=== PATIENT | female | born 1970 | race Caucasian/White ===

== ENCOUNTER 2025-02-12 10:46 | Outpatient (CLI) | payer OTHER, SELFPAY ==
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
--- OUTSIDE RECORDS SUMMARY | 2025-02-12 10:56 | XMS_ITS | Clinical Summary ---
Author Organization [facility] [facility] Address [address] Attn: Epic Prelude ADT [place] [address] Care Team Providers Care Home Comfort Advisor Name Role Phone Unavailable Primary Care Provider Unavailabl e Allergies No known active allergies Medications ketorolac tromethamine (TORADOL) 10 mg tablet Take 1 tablet (10 mg total) by mouth 4 (four) times daily as needed for Pain. 20 Tablet 12/20/2021 3:38 PM CDT 2 Active divalproex (DEPAKOTE ER) 250 mg Extended Release 24 hour tablet Take 1 tablet (250 mg total) by mouth daily for 5 days. 5 Tablet 2 Active prochlorperazine maleate (COMPAZINE) 5 mg tablet take one tablet by mouth twice daily 10 Tablet 4 12/30/2021 11:46 AM CDT 2 Active divalproex (DEPAKOTE ER) 250 mg Extended Release 24 hour tablet Take 1 tablet (250 mg total) by mouth in the morning and 1 tablet (250 mg total) in the evening. 10 Tablet 2 Active albuterol sulfate 90 mcg/Actuation inhaler Inhale two puffs by mouth every 6 hours as needed for cough or wheezing 8.5 Gram 1 01/20/2022 2:36 PM CDT 2 Active benzonatate (TESSALON) 100 mg capsule Take 1 capsule (100 mg total) by mouth 3 (three) times daily as needed for Cough. 20 Capsule 01/20/2022 2:36 PM CDT 2 Active predniSONE (DELTASONE) 20 mg tablet Take 2 tablets (40 mg total) by mouth daily for 5 days. 10 Tablet 05/11/2022 11:24 AM CDT 2 Active amoxicillin (AMOXIL) 500 mg capsule TAKE 2 CAPSULES BY MOUTH INITIALLY, THEN ONE CAPSULE BY MOUTH EVERY 6 HOURS UNTIL GONE 41 Capsule 07/14/2022 4:17 PM [facility] 2 Active HYDROcodone-aceta minophen (NORCO) 5-325 mg tablet Take 1 tablet by mouth every 6 (six) hours as needed for Pain 20 Tablet 07/15/2022 1:03 PM [facility] 2 Active metroNIDAZOLE (FLAGYL) 500 mg tablet Take 1 Tablet (500 mg) by mouth every 6 hours until gone 28 Tablet 07/16/2022 3:43 PM [facility] 2 Active HYDROcodone-aceta minophen (NORCO) 7.5-325 mg Tablet Take 1 Tablet by mouth every 4 to 6 hours as needed for dental pain. Max Daily Amount: 6 Tablets 20 Tablet 07/22/2022 5:15 PM [facility] 2 Active oxyCODONE-acetami nophen (PERCOCET) 5-325 mg tablet Take 1 to 2 tablets by mouth every 6 (six) hours as needed for Pain. 90 Tablet 09/23/2022 12:07 PM [facility] 3 Active venlafaxine (EFFEXOR XR) 150 mg Extended Release 24 hour capsule Take 1 capsule (150 mg) by mouth daily with food 30 Capsule 2 3 Active vibegron (Gemtesa) 75 mg Tablet Take 1 Tablet by mouth daily. 90 Tablet 1 3 Active venlafaxine (EFFEXOR XR) 150 mg Extended Release 24 hour capsule Take 1 capsule (150 mg) by mouth daily with food 30 Capsule 2 3 Active ubrogepant (Ubrelvy) 100 mg tablet Take 1 tablet (100 mg total) by mouth 2 (two) times daily as needed for Migraine. 16 Tablet 11 12/04/2023 11:58 AM CDT 3 Active cariprazine (Vraylar) 3 mg Capsule capsule Take 1 capsule (3 mg total) by mouth daily. 90 Capsule 1 08/07/2023 11:26 AM [facility] 3 Active traMADoL (ULTRAM) 50 mg tablet Take 1 Tablet (50 mg) by mouth every 6 hours as needed for pain 20 Tablet 06/01/2023 1:06 PM CDT 3 Active venlafaxine (EFFEXOR XR) 150 mg Extended Release 24 hour capsule Take 1 capsule (150 mg) by mouth daily with food 90 Capsule 06/14/2023 12:00 PM [facility] 3 Active oxyCODONE-acetami nophen (PERCOCET) 5-325 mg tablet Take one tablet by mouth every 4 hours as needed for pain 20 Tablet 06/16/2023 4:22 PM [facility] 3 Active cariprazine (Vraylar) 3 mg Capsule capsule Take 1 capsule (3 mg) by mouth daily 90 Capsule 3 Active HYDROcodone-aceta minophen (NORCO) 5-325 mg tablet Take 1 tablet by mouth every 6 (six) hours as needed for Pain. 20 Tablet 06/21/2023 3:33 PM [facility] 3 Active oxyCODONE-acetami nophen (PERCOCET) 5-325 mg tablet Take 1 Tablet by mouth every 4 hours as needed for pain 20 Tablet 06/28/2023 9:37 AM [facility] 3 Active cariprazine (Vraylar) 3 mg Capsule capsule Take 1 capsule (3 mg) by mouth daily 90 Capsule 3 Active venlafaxine (EFFEXOR XR) 150 mg Extended Release 24 hour capsule Take 1 capsule (150 mg) by mouth daily with food 90 Capsule 3 Active HYDROcodone-aceta minophen (NORCO) 5-325 mg tablet Take 1 tablet by mouth every 6 (six) hours as needed for Pain 35 Tablet 09/14/2023 11:30 AM [facility] 4 Active venlafaxine (EFFEXOR XR) 150 mg Extended Release 24 hour capsule Take 1 capsule (150 mg) by mouth daily with food 90 Capsule 4 Active cariprazine (Vraylar) 3 mg Capsule capsule Take 1 capsule (3 mg) by mouth daily 90 Capsule 03/17/2024 12:03 PM CDT 4 Active cariprazine (Vraylar) 3 mg Capsule capsule Take 1 capsule (3 mg) by mouth daily 90 Capsule 11/18/2023 10:56 AM CDT 4 Active clotrimazole-beta methasone (LOTRISONE) 1-0.05 % Cream Apply topically 2 (two) times daily. 45 Gram 1 01/12/2024 12:10 PM CDT 4 Active venlafaxine (EFFEXOR XR) 150 mg Extended Release 24 hour capsule Take 1 capsule (150 mg) by mouth daily with food 90 Capsule 02/04/2024 2:48 PM CDT 4 Active hydrOXYzine HCL (ATARAX) 25 mg tablet Take 1 tablet (25 mg total) by mouth 3 (three) times daily as needed for Itching. 30 Tablet 02/06/2024 5:01 PM CDT 4 Active clonazePAM (KlonoPIN) 0.5 mg Tablet Take 1 Tablet (0.5 mg) by mouth once daily as needed for anxiety 10 Tablet 02/28/2024 12:30 PM CDT 4 Active venlafaxine (EFFEXOR XR) 150 mg Extended Release 24 hour capsule Take 1 capsule (150 mg) by mouth daily with food 90 Capsule 06/05/2024 4:04 PM CDT 4 Active fezolinetant (Veozah) 45 mg tablet Take 1 tablet by mouth daily. 30 Tablet 5 06/24/2024 3:10 PM [facility] 4 Active potassium chloride (KLOR-CON) 10 mEq Extended Release tablet Take 2 tablets (20 mEq total) by mouth daily. 60 Tablet 5 09/22/2024 4:37 PM [facility] 5 Active atogepant (Qulipta) 60 mg Tablet Take 1 tablet (60 mg total) by mouth daily. 30 Tablet 11 5 Active HYDROcodone-aceta minophen (NORCO) 5-325 mg tablet Take 1 tablet by mouth every 8 (eight) hours as needed for Pain. 15 Tablet 10/13/2024 4:49 PM [facility] 5 Active naloxone (NARCAN) 4 mg/spray Tatums, Non-Aerosol 1 spray by Nasal route as needed for Opioid reversal. 1 Each 1 5 Active ubrogepant (Ubrelvy) 100 mg tablet Take 1 tablet (100 mg total) by mouth 2 (two) times daily as needed for Migraine. 16 Tablet 11 12/29/2024 2:59 PM CDT 5 Active Encounters Date Type Department Care Team Description 12/11/2024 External Device Data ST[facility] ABSTRACTION Provider, Abstract from Last 3 Months Social History Tobacco Use Types Packs/Day Years Used Date Smoking Tobacco: Never Assessed Comments Unknown Sex and Gender Information Value Date Recorded Sex Assigned at Not on file Legal Sex Female 3:23 PM CDT Gender Identity Not on file Sexual Orientation Not on file Plan of Treatment Health Maintenance Due Date Last Done Comments DTAP/TDAP/TD VACCINES (1 - Tdap) 12/27/1987 HEPATITIS B VACCINES (1 of 3 - 19+ 3-dose series) 12/07 HPV/Cotest (21-29) 1989 CERVICAL CANCER SCREENING 1998 HPV/Cotest (30-65) 1998 PAP SMEAR 1998 BREAST CANCER SCREENING 2008 COLORECTAL SCREENING 2013 Colorectal Cancer Screening 2013 FIT-DNA Q 3 years 2013 FIT/FOBT Q 1 year 2013 Flex Sig/CT Colonography Q 5 years 2013 ZOSTER VACCINE (1 of 2) 2018 INFLUENZA VACCINE (#1) [address] [place] [id number] [employer] (INTERNAL) [facility] [employer] [facility] [employer] [facility] [employer]
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
--- OUTSIDE RECORDS SUMMARY | 2025-02-12 10:56 | XMS_ITS | Encounter Summary ---
Author Organization [facility] Address [facility] [place] [address] Care Team Providers Care Hospice Clinical Supervisor Name Role Phone Segun Grimaldo MD Unavailable [phone] Bhaskar Kahn MD Primary Care Provider Un available Magalie Hung MD Primary Care Provider [phone] Encounter Details Date Type Department Care Team (Late st Contact Info) Description 12/11/2021 [place] Message Enc [facility] - [address] [place] [address] Mychart, [facility] Provider BOTOX follow up Social History Tobacco Use Types Packs/Day Years Used Date Smoking Tobacco: Former Cigarettes Q uit: 09/22/1990 Smokeless Tobacco: Former Chew Quit: 1990 Alcohol Use Standard Drinks/Week Comments Yes 0 (1 standard drink = 0.6 oz pur e alcohol) 1-2 glasses per week AUDIT-C Answer Date Recorded Frequency of Alcohol Consumption 2-4 times a tue03/22/2019 Average Number of Drinks 1 or 2 019 Frequency of Binge Drinking Not on file 03/08 PHQ-2 Answer Date Recorded PHQ-2 Score - If the patient scores above 3, please move on to questions 3-9 0 07/27/2021 Comments No Sex and Gender Information Value Date Recorded Sex Assigned at Female 09/10/2024 9:24 AM DIRECTOR OF EMAIL MARKETING Legal Sex Female 6:46 PM CDT Gender Identity Female 07/20/2021 12:04 PM DIRECTOR OF EMAIL MARKETING Sexual Orientation Straight 07/20/2021 12 :04 PM DIRECTOR OF EMAIL MARKETING Occupation Industry Job Start Date Job End Date Not on file Not on file Not on file Not on file COVID-19 Exposure Response Date Recorded In the last 10 days, have yo u been in contact with someone who was confirmed or suspected to have Coronavirus/COVID-19? No / Unsure 12/07/2021 7:47 AM CDT documented as of this encounter Functional Status * RETIRED Are you deaf or do you have serious difficulty hearing Answer Date of Assessment Author Status No 07/03/2021 12:33 AM DIRECTOR OF EMAIL MARKETING Acti ve * RETIRED Are you blind or do you have serious difficulty seeing, even when wearing glasses? Answer Date of Assessment Author Status No 07/03/2021 1:00 AM DIRECTOR OF EMAIL MARKETING Activ e * Do you have serious difficulty walking or climbing stairs? Answer Date of Assessment Author Status No 07/03/2021 1:00 AM DIRECTOR OF EMAIL MARKETING Fco Flores RN Active * Do you have difficulty dressing or bathing? Answer Date of Assessment Author Status No 07/03/2021 1:00 AM DIRECTOR OF EMAIL MARKETING Fco Flores RN Active * Because of a physical, mental, or emotional condition, do you have difficulty doing errands alone such as visiting a doctor's office or shopping? Answer Date of Assessment Author Status No 07/03/2021 1:00 AM DIRECTOR OF EMAIL MARKETING Fco Flores RN Active documented as of this encounter Mental Status * Because of a physical, mental, or emotional condition, do you have serious difficulty concentrating, remembering, or making decisions? Answer Entry Date Author Status No 07/03/2021 1:00 AM DIRECTOR OF EMAIL MARKETING Fco Flores RN Active documented in this encounter Plan of Treatment Upcoming Encounters Date Type Department Care Team (Late st Contact Info) Description 03/04/2025 10:30 AM CDT Appointment [facility] [place] [address] Shanon Sharma MD [address] [place] [address] 03/04/2025 11:00 AM CDT Appointment [facility] [address] Shanon Sharma MD [address] [place] [address] 03/13/2025 9:20 AM CDT Office Visit [facility] - [facility] [address] [place] [phone] Homero Camargo MD [address] [facility] [place] [address] documented as of this encounter Goals Goal Patient Goal Type Associated Problems Recent Progress Patient-Stated? Author Health - patient able to perform ADLs independently General No Lupis Noel, RN documented as of this encounter Visit Diagnoses Not on filedocumented in this encounter Additional Health Concerns Assessment Noted Time PHQ-9 Depression Total Score: 0 07/27/20 11:06 AM DIRECTOR OF EMAIL MARKETING documented as of this encounter Care Teams Hospice Clinical Supervisor Relationship Specialty Start Date End Date Bhaskar Kahn MD [address] [facility] [address] [place] [address] PCP - General FAMILY PRACTICE 12/10/20 05/27/24 [place] [address] [place] [address] PCP - General FAMILY PRACTICE 05/28/24 Segun Grimaldo MD [address] [facility] [address] [place] [address] [place] Glove Cuffer CARDIOVASCULAR DISEASE 03/21/19 documented as of this encounter
--- OUTSIDE RECORDS SUMMARY | 2025-02-12 10:56 | XMS_ITS | Patient Health Record ---
Author Organization [facility] [employer] [place] ([address]) Address [address] [place] [address] Care Team Providers Care Mold Insert Changer Name Role Phone Bhaskar Kahn Primary Care Provider Debbie Ahuja Unavailable [phone] Allergies Allergen (clinical drug ingredient) Drug/Non Drug Allergy documented on EMR Reaction Allergy Type Onset Date Status VICODIN (uncoded) Itching Allergy Ac tive Reason For Referral No Information Medications Medication SIG (Take, Route, Fr equency, Duration) Notes Start Date End Date Status GABAPENTIN 300 mg ; Duration: 90 Active PRAVASTATIN 20 mg 1 tab(s) orally once a day; Duration: 30 day(s) 07/20/2021 Active OMEPRAZOLE 20 mg ; Duration: 90 Active Omeprazole 20 MG ; Duration: 90 Active EPIPEN 2-YASIR 0.3 mg as directed intramus cularly once; Duration: 1 dose(s) 07/20/2021 Active EPIPEN 2-YASIR 0.3 mg as directed intramus cularly once; Duration: 1 dose(s) Active OXYBUTYNIN 10 mg/24 hr 1 tab(s) orally o nce a day; Duration: 30 day(s) 07/20/2021 Active MYRBETRIQ 25 mg ; Duration: 90 Active EFFEXOR XR 150 mg 1 cap(s) orally once a day; Duration: 30 day(s) Active EpiPen 2-Yasir 0.3 MG/0.3ML as directed intramuscularly once; Duration: 1 dose(s) 07/20/2021 Active Effexor XR 150 MG 1 cap(s) orally once a day; Duration: 30 day(s) Active EpiPen 2-Yasir 0.3 MG/0.3ML as directed intramuscularly once; Duration: 1 dose(s) Active ABILIFY 2 mg 1 tab(s) orally once a day; Duration: 30 day(s) Active Abilify 2 MG 1 tab(s) orally once a day; Duration: 30 day(s) Active LOSARTAN 100 mg 1 tab(s) orally once a day Active Losartan Potassium 100 MG 1 tab(s) orally once a day A ctive Gabapentin 300 MG ; Duration: 90 Active Pravastatin Sodium 20 MG 1 tab(s) orally once a day; Duration: 30 day(s) 07/20/2021 Active oxyBUTYnin Chloride ER 10 MG 1 tab(s) orally once a day; Duration: 30 day(s) 07/20/2021 Active Myrbetriq 25 MG ; Duration: 90 Active Social History Tobacco Use: Social History Observation Description Date Details (start date - stop date) Never Smoker NA - NA Smoking Smart Form: Question Answer Notes Are you a: never smoker Problems Problem Type SNOMED Code ICD Code Onset Dates Problem Status W/U Status Risk Notes Problem Anxiety disorder (512818492) Anxiety disorder, unspecified (F41.9) Active confirmed Problem Borderline personali ty disorder (97322449) Borderline personality disorder (F60.3) Active confirmed Problem Chronic allergic conjunctivitis (32774031) Other chronic allergic conjunctivitis (H10.45) Active confirmed Problem Allergic rhinitis caused by pollen (disorder) (91923511) Allergic rhinitis due to pollen (J30.1) Active confirmed Problem Allergic rhinitis (46454793) Other allergic rhinitis (J30.89) Active confirmed Problem Chronic rhinitis (34523764) Chronic rhinitis (J31.0) Active confirmed Problem Uncomplicated mild persistent asthma (455542057) Mild persistent asthma, uncomplicated (J45.30) Active confirmed Problem Uncomplicated modera te persistent asthma (494933904) Moderate persistent asthma, uncomplicated (J45.40) Active confirmed Problem Uncomplicated severe persistent asthma (124964544) Severe persistent asthma, uncomplicated (J45.50) Active confirmed Problem Toxic effect of veno m (59909131) Toxic effect of venom of bees, accidental (unintentional), initial encounter (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.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) Active confirmed Problem Toxic effect of venom of wasps, accidental (unintentional), initial encounter (T63.461A) Active confirmed Problem Allergic rhinitis caused by pollen (disorder) (30014757) Allergic rhinitis due to pollen (J30.1) Active confirmed Problem Allergic rhinitis caused by animal hair and dander (665356174261175) Allergic rhinitis due to animal (cat) (dog) hair and dander (J30.81) Active confirmed Problem Essential hypertensi on (12008335) Essential (primary) hypertension (I10) Active confirmed Problem Ingestion dermatitis caused by food (413803753) Dermatitis due to ingested food (L27.2) Active confirmed Problem Pure hypercholesterolemia (374175049) Pure hypercholesterol emia, unspecified (E78.00) Active confirmed Problem Depression (992431769) Depressio n, unspecified (F32.A) Active confirmed Plan Of Treatment No Information Insurance Providers Payer Name Payer Address Payer Phone Subscriber Number Group Number Insured Name Patient Relationship to Insured Coverage Start Date Coverage End Date [facility] [address] [place] [address] [id number] Avinash Chin Spouse - patient is the spouse of the insured Medical (General) History Medical History History ICD Code Essential (primary) hypertension I10 Borderline personality disorder F60.3 Depression, unspecified F32.A Anxiety disorder, unspecified F41.9 Pure hypercholesterolemia, unspecified E 78.00 Surgical History Surgery Date(Month/Year) cholecystectomy hysterectomy vaginal 2014 Hernia repair 1976 multiple bilateral lower extremities 198 0-2017 Hospitalization History Reason Date(Month/Year) Stroke 2013 Hypertension 2019 Hypokalemia 06/28 See surgical history
--- OUTSIDE RECORDS SUMMARY | 2025-02-12 10:56 | XMS_ITS | Encounter Summary ---
Author Organization [facility] Address [facility] [place] [address] Care Team Providers Care Occ Therapist Name Role Phone Segun Grimaldo MD Unavailable [phone] Bhaskar Kahn MD Primary Care Provider Un available Magalie Hung MD Primary Care Provider [phone] Encounter Details Date Type Department Care Team (Late st Contact Info) Description 12/14/2021 Therapy Plan [facility] Infusion [facility] [address] [place] [phone] Homero Camargo MD [address] [place], [place] [phone] Social History Tobacco Use Types Packs/Day Years [...] Sex Assigned at Female 09/10/2024 9:24 AM MEDICAL TECHNOLOGIST HEMATOLOGY Legal Sex Female 6:46 PM CDT Gender Identity Female 07/20/2021 12:04 PM MEDICAL TECHNOLOGIST HEMATOLOGY Sexual Orientation Straight 07/20/2021 12 :04 PM MEDICAL TECHNOLOGIST HEMATOLOGY Occupation Industry Job Start Date Job End Date Not on file Not on file Not on file Not on file COVID-19 Exposure Response Date Recorded In the last 10 days, have yo u been in contact with someone who was confirmed or suspected to have Coronavirus/COVID-19? No / Unsure 12/15/2021 2:18 PM CDT documented as of this encounter Functional Status * RETIRED Are you deaf or do you have serious difficulty hearing Answer Date of Assessment Author Status No 07/03/2021 12:33 AM MEDICAL TECHNOLOGIST HEMATOLOGY Acti ve * RETIRED Are you blind or do you have serious difficulty seeing, even when wearing glasses? Answer Date of Assessment Author Status No 07/03/2021 1:00 AM MEDICAL TECHNOLOGIST HEMATOLOGY Activ e * Do you have serious difficulty walking or climbing stairs? Answer Date of Assessment Author Status No 07/03/2021 1:00 AM MEDICAL TECHNOLOGIST HEMATOLOGY Fco Flores RN Active * Do you have difficulty dressing or bathing? Answer Date of Assessment Author Status No 07/03/2021 1:00 AM MEDICAL TECHNOLOGIST HEMATOLOGY Fco Flores RN Active * Because of a physical, mental, or emotional condition, do you have difficulty doing errands alone such as visiting a doctor's office or shopping? Answer Date of Assessment Author Status No 07/03/2021 1:00 AM MEDICAL TECHNOLOGIST HEMATOLOGY Fco Flores RN Active * Calculated C-SSRS Risk Score (Lifetime/Recent) Answer Date of Assessment Author Status No Risk Indicated 12/15/2021 2:43 PM CDT Adriana Tristan RN Active * [place] Suicide Severity Rating Scale (Screener/Recent Self-Report) Question Answer Date of Assessment Author Status 1. Wish to be (Past 1 Month) No 12/15/2021 2:43 PM CDT Adriana Tristan RN Active 2. Non-Specific Active Suicidal Thoughts (Past 1 Month) No 12/15/2021 2:43 PM CDT Adriana Tristan RN Active 6. Suicidal Behavior (Lifetime) No 12/15/2021 2:43 PM CDT Adriana Tristan RN Active documented as of this encounter Mental Status * Because of a physical, mental, or emotional condition, do you have serious difficulty concentrating, remembering, or making decisions? Answer Entry Date Author Status No 07/03/2021 1:00 AM MEDICAL TECHNOLOGIST HEMATOLOGY Fco Flores RN Active documented in this encounter Plan of Treatment Upcoming Encounters Date Type Department Care Team (Late st Contact Info) Description 03/04/2025 10:30 AM CDT Appointment [facility] [place] [address] Shanon Sharma MD [address] [place] [phone] 03/04/2025 11:00 AM CDT Appointment [facility] [place] [address] Shanon Sharma MD [address] [place] [phone] 03/13/2025 9:20 AM CDT Office Visit [facility], [address] [place] [phone] Homero Camargo MD [address] [facility] [place] [address] documented as of this encounter Goals Goal Patient Goal Type Associated Problems Recent Progress Patient-Stated? Author Health - patient able to perform ADLs independently General No Lupis Noel, RN documented as of this encounter Visit Diagnoses Diagnosis Status migrainosus- Primary Variants of migraine, not elsewhere classified, without mention of intractable migraine without mention of status migrainosus documented in this encounter Additional Health Concerns Assessment Noted Time PHQ-9 Depression Total Score: 0 07/27/20 21 11:06 AM MEDICAL TECHNOLOGIST HEMATOLOGY documented as of this encounter Care Teams Occ Therapist Relationship Specialty Start Date End Date Bhaskar Kahn MD 3 [facility] [address] [place] [address] PCP - General FAMILY PRACTICE 12/10/20 05/27/24 Magalie Hung MD [address] [place] [address] PCP - General FAMILY PRACTICE 05/28/24 Segun Grimaldo MD 3 [facility] [address] [place] [address] [employer] Loss Control Surveyor CARDIOVASCULAR DISEASE 03/21/19 documented as of this encounter
--- OUTSIDE RECORDS SUMMARY | 2025-02-12 10:56 | XMS_ITS | Encounter Summary ---
Author Organization [facility] Address [facility] [place] [address] Care Team Providers Care Retail Sales Vitamin Consultant Name Role Phone Segun Grimaldo MD Unavailable [phone] Bhaskar Kahn MD Primary Care Provider Un available Magalie Hung MD Primary Care Provider [phone] Encounter Details Date Type Department Care Team (Late st Contact Info) Description 07/07/2021 [employer] Message Enc [facility] Family Medicine [address] [address] [facility] Provider Reschedule or video visit - 07/07/2021 Social History Tobacco Use Types Packs/Day Years Used Date Smoking Tobacco: Passive Smo ke Exposure - Never Smoker Smokeless Tobacco: Former Chew Quit: 1990 Alcohol [...] please move on to questions 3-9 0 06/26/2021 Comments No Sex and Gender Information Value Date Recorded Sex Assigned at Female 09/10/2024 9:24 AM ROOF PLUMBER Legal Sex Female 6:46 PM CDT Gender Identity Female 07/20/2021 12:04 PM ROOF PLUMBER Sexual Orientation Straight 07/20/2021 12 :04 PM ROOF PLUMBER Occupation Industry Job Start Date Job End Date Not on file Not on file Not on file Not on file COVID-19 Exposure Response Date Recorded In the last month, have you been in contact with someone who was confirmed or suspected to have Coronavirus / COVID-19? No / Unsure 07/09/2021 3:00 PM ROOF PLUMBER documented as of this encounter Functional Status * RETIRED Are you deaf or do you have serious difficulty hearing Answer Date of Assessment Author Status No 07/03/2021 12:33 AM ROOF PLUMBER Acti ve * RETIRED Are you blind or do you have serious difficulty seeing, even when wearing glasses? Answer Date of Assessment Author Status No 07/03/2021 1:00 AM ROOF PLUMBER Activ e * Do you have serious difficulty walking or climbing stairs? Answer Date of Assessment Author Status No 07/03/2021 1:00 AM ROOF PLUMBER Fco Flores RN Active * Do you have difficulty dressing or bathing? Answer Date of Assessment Author Status No 07/03/2021 1:00 AM ROOF PLUMBER Fco Flores RN Active * Because of a physical, mental, or emotional condition, do you have difficulty doing errands alone such as visiting a doctor's office or shopping? Answer Date of Assessment Author Status No 07/03/2021 1:00 AM ROOF PLUMBER Fco Flores RN Active documented as of this encounter Mental Status * Because of a physical, mental, or emotional condition, do you have serious difficulty concentrating, remembering, or making decisions? Answer Entry Date Author Status No 07/03/2021 1:00 AM ROOF PLUMBER Fco Flores RN Active documented in this encounter Plan of Treatment Upcoming Encounters Date Type Department Care Team (Late st Contact Info) Description 03/04/2025 10:30 AM CDT Appointment [facility] [address] Shanon Sharma MD [address] [place] [phone] 03/04/2025 11:00 AM CDT Appointment [facility] [place] [address] Shanon Sharma MD [address] [place] [address] 03/13/2025 9:20 AM CDT Office Visit [facility] Mult[facility]ialty Care - [place] [address] [place] [phone] Homero Camargo MD [address] [facility] [place] [address] documented as of this encounter Goals Goal Patient Goal Type Associated Problems Recent Progress Patient-Stated? Author Health - patient able to perform ADLs independently General No Lupis Noel, RN documented as of this encounter Visit Diagnoses Not on filedocumented in this encounter Additional Health Concerns Assessment Noted Time PHQ-9 Depression Total Score: 0 06/26/20 21 1:17 PM ROOF PLUMBER documented as of this encounter Care Teams Retail Sales Vitamin Consultant Relationship Specialty Start Date End Date Bhaskar Kahn MD 3 [facility] [address] [place] [address] PCP - General FAMILY PRACTICE 12/10/20 05/27/24 [place] [address] [place] [address] PCP - General FAMILY PRACTICE 05/28/24 Segun Grimaldo MD [facility] [address] [place] [address] [employer] P[employer] CARDIOVASCULAR DISEASE 03/21/19 documented as of this encounter
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
--- OUTSIDE RECORDS SUMMARY | 2025-02-12 10:56 | XMS_ITS | Encounter Summary ---
Author Organization [facility] Facility Care Team Providers Care Salesperson Trailers And Motor Homes Name Role Phone Aaliyah Ramos MD Primary Care Provider [phone] Bhaskar Kahn MD Primary Care Provider Magalie Hung MD Unavailable Magalie Hung MD Primary Care Provider [phone] Homero Camargo MD Unavailable [phone] Encounter Details Date Type Department Care Team (Latest Contact Info) Description 04/23/2016 Orders Only [facility] CLINCONV ProviderJessica MD [address] [place] [address] Social History Tobacco Use Types Packs/Day Years Used Date Smoking Tobacco: Never Assessed Comments Unknown Sex and Gender Information Value Date Recorded Sex Assigned at Not on file Legal Sex Female 1:20 AM CIVIL DRAFTSMAN Gender Identity Not on file Sexual Orientation Not on file documented as of this encounter Plan of Treatment Not on file documented as of this encounter Procedures Procedure Name Priority Date/Time Associated Diagnosis Comments PROCEDURE - RESULT 04/23/2016 12 :00 AM CDT documented in this encounter Results * PROCEDURE - RESULT (04/23/2016 12:00 AM CDT) Narrative 04/23/2016 12:00 AM CDT Ordered by an unspecified provider. Historical Provider Final Res ult documented in this encounter Visit Diagnoses Not on filedocumented in this encounter Care Teams Salesperson Trailers And Motor Homes Relationship Specialty Start Date End Date Aaliyah Ramos MD PCP - General Internal Medicine 08/24/18 03/14/23 Bhaskar Kahn MD [address] [place] [address] PCP - General Family Medicine 03/15/23 08/30/24 Magalie Hung MD 3 [facility] [address] [address] PCP - General Family Medicine 08/31/24 Magalie Hung MD [address] [place] [address] Family Medicine 07/19/24 Homero Camargo MD [address] [facility] [address] Referring Physician Neurology 09/19/24 documented as of this encounter
--- OUTSIDE RECORDS SUMMARY | 2025-02-12 10:56 | XMS_ITS | Encounter Summary ---
Author Organization [facility] Address [facility] [place] [address] Care Team Providers Care District Wildlife Manager Name Role Phone Segun Grimaldo MD Unavailable [phone] Bhaskar Kahn MD Primary Care Provider Un available Magalie Hung MD Primary Care Provider [phone] Encounter Details Date Type Department Care Team (Late st Contact Info) Description 03/28/2021 MyChart Message Enc [facility] Family Medicine [address] [address] Bhaskar Kahn MD Question Social History Tobacco Use Types Packs/Day Years [...] please move on to questions 3-9 0 08/13/2020 Comments No Sex and Gender Information Value Date Recorded Sex Assigned at Female 09/10/2024 9:24 AM MANUFACTURING PROJECT MANAGER Legal Sex Female 6:46 PM CDT Gender Identity Female 07/20/2021 12:04 PM MANUFACTURING PROJECT MANAGER Sexual Orientation Straight 07/20/2021 12 :04 PM MANUFACTURING PROJECT MANAGER Occupation Industry Job Start Date Job End Date Not on file Not on file Not on file Not on file COVID-19 Exposure Response Date Recorded In the last month, have you been in contact with someone who was confirmed or suspected to have Coronavirus / COVID-19? No / Unsure 03/19/2021 10:01 AM CDT documented as of this encounter Functional Status * RETIRED Are you deaf or do you have serious difficulty hearing Answer Date of Assessment Author Status No 05/01/2019 1:41 PM CDT Activ e * RETIRED Are you blind or do you have serious difficulty seeing, even when wearing glasses? Answer Date of Assessment Author Status No 05/01/2019 1:41 PM CDT Activ e * Do you have serious difficulty walking or climbing stairs? Answer Date of Assessment Author Status No 05/01/2019 1:41 PM CDT Sarah Blackwell RN Active * Do you have difficulty dressing or bathing? Answer Date of Assessment Author Status No 05/01/2019 1:41 PM CDT Sarah Blackwell RN Active * Because of a physical, mental, or emotional condition, do you have difficulty doing errands alone such as visiting a doctor's office or shopping? Answer Date of Assessment Author Status No 05/01/2019 1:41 PM CDT Sarah Blackwell RN Active documented as of this encounter Mental Status * Because of a physical, mental, or emotional condition, do you have serious difficulty concentrating, remembering, or making decisions? Answer Entry Date Author Status No 05/01/2019 1:41 PM CDT Sarah Blackwell RN Active documented in this encounter Progress Notes * Cathy Esparza MA - 03/30/2021 7:38 AM CDT Patient informed she would have to go through my chart. She is feeling better so she won't be getting a covid swab. * Cathy Esparza MA - 03/30/2021 7:31 AM CDT LVM to CB documented in this encounter Plan of Treatment Upcoming Encounters Date Type Department Care Team (Late st Contact Info) Description 03/04/2025 10:30 AM CDT Appointment [facility] [address] [place] [address] [place] [address] [place] [phone] 03/04/2025 11:00 AM CDT Appointment [facility] [address] [place] [address] Shanon Sharma MD [address] [place] [phone] 03/13/2025 9:20 AM CDT Office Visit [facility] [address] [place] [phone] Homero Camargo MD [address] [place] [address] documented as of this encounter Visit Diagnoses Not on filedocumented in this encounter Care Teams District Wildlife Manager Relationship Specialty Start Date End Date Bhaskar Kahn MD 3 [facility] [address] [place] [address] PCP - General FAMILY PRACTICE 12/10/20 05/27/24 Magalie Hung MD [address] [place] [address] PCP - General FAMILY PRACTICE 05/28/24 Segun Grimaldo MD 3 [facility] [address] [place] [address] [place] Pediatric Clinical Dietician CARDIOVASCULAR DISEASE 03/21/19 documented as of this encounter
--- OUTSIDE RECORDS SUMMARY | 2025-02-12 10:56 | XMS_ITS ---
Author Organization [facility] ([address]) Address [address] [place] [address] Care Team Providers Care Stamp Mounter Name Role Phone Bhaskar Kahn Primary Care Provider UnaDebbie Cruz Unavailable [phone] [facility], Provider Unavailable Unavailab le Allergies Allergen (clinical drug ingredient) Drug/Non Drug Allergy documented on EMR Reaction Allergy Type Onset Date Status VICODIN (uncoded) Itching Allergy Ac tive REASON FOR VISIT [facility] To [facility] Conversion Encounter Medications Medication SIG (Take, Route, Fr equency, Duration) Notes Start Date End Date Status EpiPen 2-Yasir 0.3 MG/0.3ML as directed intramuscularly once; Duration: 1 dose(s) Active Gabapentin 300 MG ; Duration: 90 Active Pravastatin Sodium 20 MG 1 tab(s) orally once a day; Duration: 30 day(s) 07/20/2021 Active oxyBUTYnin Chloride ER 10 MG 1 tab(s) orally once a day; Duration: 30 day(s) 07/20/2021 Active Myrbetriq 25 MG ; Duration: 90 Active Omeprazole 20 MG ; Duration: 90 Active EpiPen 2-Yasir 0.3 MG/0.3ML as directed intramuscularly once; Duration: 1 dose(s) 07/20/2021 Active Effexor XR 150 MG 1 cap(s) orally once a day; Duration: 30 day(s) Active Abilify 2 MG 1 tab(s) orally once a day; Duration: 30 day(s) Active Losartan Potassium 100 MG 1 tab(s) orally once a day A ctive Encounters Encounter Location Date Provider Diagnosis [facility] [place] [address] 01/21/2024 Provider [facility]-Migration Plan Of Treatment No Information Progress Notes * YANN JonoaDOB: [birth year] (54 yo F)Acc No.[id number]:01/21/2024 Patient: Nicole RILEY Provider: Nely Bonilla :1970 A ge:53 Y S ex:Female Date:01/21/2024 Address:[address] [place] [address] , [facility] Pcp:Bhaskar Kahn Subjective: * Chief Complaints: * [facility] . [facility] En[facility]. * Medical History: * Medications: T aking Losartan Potassium 100 MG Tablet 1 tab(s) orally once a day , Taking Abilify 2 MG Tablet 1 tab(s) orally once a day , Taking Effexor XR 150 MG Capsule Extended Release 24 Hour 1 cap(s) orally once a day , Taking EpiPen 2-Yasir 0.3 MG/0.3ML Solution Auto-injector as directed intramuscularly once , Taking Omeprazole 20 MG Capsule Delayed Release , Taking Pravastatin Sodium 20 MG Tablet 1 tab(s) orally once a day , Taking Gabapentin 300 MG Capsule , Taking Myrbetriq 25 MG Tablet Extended Release 24 Hour , Taking oxyBUTYnin Chloride ER 10 MG Tablet Extended Release 24 Hour 1 tab(s) orally once a day , Taking EpiPen 2-Yasir 0.3 MG/0.3ML Solution Auto- injector as directed intramuscularly once * Allergies: V ICODIN: Itching. Objective: * Vitals: Assessment: Plan: * Treatment: * Billing Information: * Visit Code: * Procedure Codes: * Electronic signature of Juliano tolliverr [facility] on 02/12/2025 at 10:56 AM CDT Sign off status: Pending * Provider: Nely Bonilla Date: 0 01/21/2024 Generated for Laureen barger/Elia/Rick on: 0 02/12/2025 10:56 AM CDT
--- OUTSIDE RECORDS SUMMARY | 2025-02-12 10:56 | XMS_ITS | Encounter Summary ---
Author Organization [facility] Facility Care Team Providers Care Appliance Repairer Name Role Phone Aaliyah Ramos MD Primary Care Provider [phone] Bhaskar Kahn MD Primary Care Provider Magalie Hung MD Unavailable Magalie Hung MD Primary Care Provider [phone] Homero Camargo MD Unavailable [phone] Encounter Details Date Type Department Care Team (Latest Contact Info) Description 04/20/2016 Orders Only [facility] CLINCONV ProviderJessica MD [address] [place] [address] Social History Tobacco Use Types Packs/Day Years Used Date Smoking Tobacco: Never Assessed Comments Unknown Sex and Gender Information Value Date Recorded Sex Assigned at Not on file Legal Sex Female 1:20 AM SUPERVISOR PLATING AND POINT ASSEMBLY Gender Identity Not on file Sexual Orientation Not on file documented as of this encounter Plan of Treatment Not on file documented as of this encounter Procedures Procedure Name Priority Date/Time Associated Diagnosis Comments PROCEDURE - RESULT 04/20/2016 12 :00 AM CDT documented in this encounter Results * PROCEDURE - RESULT (04/20/2016 12:00 AM CDT) Narrative 04/20/2016 12:00 AM CDT Ordered by an unspecified provider. Historical Provider Final Res ult documented in this encounter Visit Diagnoses Not on filedocumented in this encounter Care Teams Appliance Repairer Relationship Specialty Start Date End Date Aaliyah Ramos MD PCP - General Internal Medicine 08/24/18 03/14/23 Bhaskar Kahn MD [address] [place] [address] PCP - General Family Medicine 03/15/23 08/30/24 Magalie Hung MD 3 [facility] [address] [address] PCP - General Family Medicine 08/31/24 Magalie Hung MD [address] [place] [address] Family Medicine 07/19/24 Homero Camargo MD [address] [facility] [address] Referring Physician Neurology 09/19/24 documented as of this encounter
--- OUTSIDE RECORDS SUMMARY | 2025-02-12 10:56 | XMS_ITS | Referral Summary ---
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/2023 Adhesive capsulitis [...] carotid artery, now takes plavix/lipitor for this Social History Tobacco Use Types Packs/Day Years [...] on file Legal Sex Female 1:20 AM ROUTE DRIVER COIN MACHINES Gender Identity Not on file Sexual Orientation Not on file Occupation Industry Job Start Date Job End Date housewife Not on file Not on file Not on file Last Filed Vital Signs Vital Sign Reading Time Taken Comments Blood Pressure 130/90 10/08/2021 8:22 AM ROUTE DRIVER COIN MACHINES Pulse 80 10/08/2021 8:22 AM ROUTE DRIVER COIN MACHINES Temperature 36.8 C (98.3 F) 04/23/2016 9:40 AM CDT Respiratory Rate - - Oxygen Saturation 94% 04/23/2016 9:40 AM CDT Inhaled Oxygen Concentration - - Weight 107 kg (236 lb) 08/31/2024 8:55 AM ROUTE DRIVER COIN MACHINES Height 162.6 cm (5' 4) 08/31/2024 8:55 AM ROUTE DRIVER COIN MACHINES Body Mass Index 40.51 08/31/2024 8:55 AM ROUTE DRIVER COIN MACHINES Plan of Treatment Not on file Insurance [facility] [place] [address] [place] [address] [facility] [place] [address] [place] [address] [facility] Care Teams Bsa/Aml Compliance Officer Relationship Specialty Start Date End Date Magalie Hung MD 3 [facility] [address] [place] [address] PCP - General Family Medicine 08/31/24 Magalie Hung MD [address] [place] [address] Family Medicine 07/19/24 Homero Camargo MD 3 [facility] [address] [place] [address] Referring Physician Neurology 09/19/24
--- OUTSIDE RECORDS SUMMARY | 2025-02-12 10:57 | XMS_ITS | Patient Health Record ---
Author Organization [facility] Address [address] [place], [place] [address] Care Team Providers Care Network Pricing Consultant Name Role Phone BRYANT Mendoza Unavailable [phone] Reason For Referral No Information Medications Medication SIG (Take, Route, Frequency, Duration) Notes Start Date End Date Status clopidogrel 300 MG Oral Tablet ORAL clopidogrel 300 MG Oral TabletOriginal Medicationclopidogrel 300 MG Oral Tablet *Reorder from [employer] for eRx and Interaction Alerts* 7 Active acetaminophen 325 MG / oxycodone hydrochloride 10 MG Oral Tablet [Percocet] ORAL acetaminophen 325 MG / oxycodone hydrochloride 10 MG Oral Tablet [Percocet]Original Medicationacetaminophen 325 MG / oxycodone hydrochloride 10 MG Oral Tablet [Percocet] *Reorder from [employer] for eRx and Inter 7 Active Plan Of Treatment No Information Insurance Providers Payer Name Payer Address Payer Phone Subscriber Number Group Number Insured Name Patient Relationship to Insured Coverage Start Date Coverage End Date Raiza Gary (Regions 1-6) [address] [place], [place] [id number] DESTINY CURTIS Spouse - patient is the spouse of the insured
--- OUTSIDE RECORDS SUMMARY | 2025-02-12 10:57 | XMS_ITS | Clinical Summary ---
Author Organization [facility] Address [address] [place] [address] Care Team Providers Care Deputy Jailer Name Role Phone Segun Grimaldo MD Unavailable [phone] Magalie Hung MD Primary Care Provider [phone] Allergies Active Allergy Reactions Criticality Noted Date Comments Tape Rash Low 05/25/2023 Grass Pollen(K-O-R-T-Swt [place]) Runny Nose Low 12/31 Medications omeprazole 20 MG capsuleIndicatio ns:Gastroesophag eal reflux disease, unspecified whether esophagitis present Take 1 capsule (20 mg total) by mouth daily. 90 capsule 3 1 Active EPINEPHrine (EPIPEN 2-TAYLOR) 0.3 MG/0.3ML injectionIndicat ions:Multiple food allergies Inject 0.3 mLs (0.3 mg total) into the muscle as needed for Anaphylaxis. 1 each 2 1 Active aspirin 325 MG tablet Take 1 tablet (325 mg total) by mouth daily. Active acetaminophen 500 MG tablet Take 1 tablet (500 mg total) by mouth every 6 (six) hours as needed for Pain. Active diphenhydrAMINE 25 MG capsule Take 1 capsule (25 mg total) by mouth every 6 (six) hours as needed for Itching. Active albuterol sulfate HFA 108 (90 Base) MCG/ACT inhalerIndicatio ns:Cough in adult patient Inhale 2 puffs into the lungs every 6 (six) hours as needed (Cough or wheezing). 18 g 1 2 Active cariprazine (VRAYLAR) 3 MG capsuleIndicatio ns:Major depressive disorder in partial remission, unspecified whether recurrent Take 1 capsule (3 mg total) by mouth daily. 90 capsule 1 3 Active venlafaxine XR (EFFEXOR-XR) 150 MG 24 hr capsuleIndicatio ns:Major depressive disorder, remission status unspecified, unspecified whether recurrent,Anxiet y Take 1 capsule (150 mg total) by mouth daily. 90 capsule 3 4 Active hydroCHLOROthiaz unruly (HYDRODIURIL) 25 MG tabletIndication s:Essential hypertension take 1 tablet every morning 90 tablet 3 4 Active losartan (COZAAR) 50 MG tabletIndication s:Essential hypertension Take 1 tablet (50 mg total) by mouth daily. 90 tablet 3 4 Active atogepant (QULIPTA) tabletIndication s:Migraine without aura, not intractable, without status migrainosus Take 1 tablet (60 mg total) by mouth daily. 30 tablet 11 5 Active Additional Information Patient taking differently:60 mg Oral Daily,As needed, Reported on 11/28/2024 potassium chloride CR (K-TAB) 10 MEQ Tab CR tabletIndication s:Hypokalemia Take 2 tablets (20 mEq total) by mouth daily. 60 tablet 5 5 Active pravastatin (PRAVACHOL) 40 MG tabletIndication s:Dyslipidemia Take 1 tablet (40 mg total) by mouth daily. 90 tablet 3 5 Active HYDROcodone-acet aminophen (NORCO) 5-325 MG tabletIndication s:Chronic Pain Take 1 tablet by mouth every 8 (eight) hours as needed for Pain. Indications: Chronic Pain 15 tablet 5 Active naloxone (NARCAN) 4 MG/0.1ML nasal sprayIndications :Chronic pain of both knees,Chronic pain syndrome 1 spray by Nasal route as needed for Opioid reversal. 1 each 1 5 Active UBRELVY 100 MG tabletIndication s:Migraine without aura, not intractable, without status migrainosus Take 1 tablet (100 mg total) by mouth 2 (two) times daily as needed for Migraine. 16 tablet 11 5 Active divalproex ER (DEPAKOTE ER) 250 MG 24 hr tabletIndication s:Chronic migraine without aura with status migrainosus, not intractable Take 1 tablet (250 mg total) by mouth daily. 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[facility]) 05/11/2023 Menorrhagia 05/11/2023 Migraine with typical aura 05/11/2023 Myopia 05/11/2023 Otalgia, left ear 05/11/2023 Panic disorder without agoraphobia 05/11/2023 Patellar tendinitis 05/11/2023 Persistent insomnia 05/11/2023 Postcalcaneal bursitis of left foot 05/11/2023 Presbyopia 05/11/2023 Regular astigmatism 05/11/2023 Tachycardia 05/11/2023 Tremor 05/11/2023 Vitamin D deficiency 05/11/2023 Chronic migraine without aura 03/11/2023 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, unspecified whether recurrent ([facility]) 08/30/2022 Borderline personality disorder ([facility] ) 08/30/2022 Intractable migraine 12/22/2021 Status migrainosus 12/14/2021 Migraine without aura and wi thout status migrainosus, not intractable 08/17/2021 Chronic pain of both knees 05/25/2021 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) 05/11/2019 Emotional stress 05/11/2019 Class 3 severe obesity due t o excess calories with serious comorbidity and body mass index (BMI) of 40.0 to 44.9 in adult 05/11/2019 Stroke ([facility]) 08/08/2012 Overview (03/20/2019): dissected left carotid artery, now takes plavix/lipitor for this Dyslipidemia GERD (gastroesophageal reflux disease) Resolved Problems Problem Noted Date Diagnosed Date Resolved Date Medication overuse headache 05/11/2023 09/01/2023 Hyperlipidemia 05/11/2023 01/11/2024 Hypokalemia 07/02/2021 11/05/2021 ERIKA (obstructive sleep apnea) 05/11/2019 01/26/2023 Encounters Date Type Department Care Team Description 01/22/2025 Nuka Indstries Message Enc [facility] - [address], [address] [place] [address] [facility] Provider reschedule 01/22/2025 Telephone [facility] - [address] [place] [address] Homero Camargo MD Reschedule 01/11/[address] [address] Magalie Hung MD Breast Problem (Per note pt that did breast exam and found a lump) 01/11/[address] [address] Magalie Hung MD Breast Problem 12/27/2024 Scan [employer] INFO SRVCS Scanned, [facility] 11/29/[address] [address] Magalie Hung MD Referral (Pt is requesting a referral to Dr Woody beasley for bladder implant check) 11/29/[address] [address] Magalie Hung MD Referral 11/28/2024 11:20 AM CDT Office [facility] [address], [address] [place] [address] Homero Camargo MD Botox (migraines 200 units) 11/28/2024 Scan HEALTH INFO SRVCS Scanned, [facility] 11/28/2024 Travel from Last 3 Months Immunizations Immunization Administration Dates Next Due Fluzone (IIV3, Trivalent, 0.5 ML Prefilled Syrin ge) 09/12/2024 Fluzone 6 Months+ Quad (0.5 mL Prefilled Syringe ) 05/27/2022,05/25/2021 PFIZER COVID-19 (ORIGINAL FO RMULATION, PURPLE CAP) mRNA, LNP-S, PF, 30 MCG/0.3 ML DOSE 11/25/2020,11/03/2020 Shingrix 06/09/2022 Family History Medical History Relation Comments CABG Father Coronary artery disease Father Stent Cardiac Father Breast Cancer Mother COPD Mother Kidney Disease Mother Thyroid Disease Mother CABG Paternal Grandfather CABG Paternal Grandmother Relation Status Comments Brother Alive Father Alive Maternal Grandfather Maternal Grandmother Mother Alive Paternal Grandfather Paternal Grandmother Social History Tobacco Use Types Packs/Day Years Used Date Smoking Tobacco: Never Passive Smoke Exposure: Past Smokeless Tobacco: Former Chew Quit: 1990 Tobacco Cessation:Counseling Given: Yes Comments:Former, Quit 1990 Alcohol Use Standard Drinks/Week Comments Not Currently 0 (1 standard drink = 0.6 oz pur e alcohol) 1-2 year [facility] Utilities Answer Date Recorded In the past 12 months has [facility] [employer], oil, or water [employer] threatened to shut off services in your home? No 09/10/2024 Humiliation, Afraid, Rape, and Kick questionnair e Answer Date Recorded Within the last year, have y ou been afraid of your partner or ex-partner? No 09/10/2024 Within the last year, have y ou been humiliated or emotionally abused in other ways by your partner or ex-partner? No Within the last year, have y ou been kicked, hit, slapped, or otherwise physically hurt by your partner or ex-partner? No 09/10/2024 Within the last year, have y ou been raped or forced to have any kind of sexual activity by your partner or ex-partner? No 09/10/2024 AUDIT-C Answer Date Recorded Frequency of Alcohol Consumption 2-4 times a tue03/22/2019 Average Number of Drinks 1 or 2 019 Frequency of Binge Drinking Not on file 03/08 Overall Financial Resource Strain (CARDIA) Answe r Date Recorded How hard is it for you to pa y for the very basics like food, housing, medical care, and heating? Not hard at all 09/10/2024 PHQ-2 Answer Date Recorded Patient Health Questionnaire-2 Score 0 10/09/2024 Hunger Vital Sign Answer Date Recorded Within the past 12 months, y ou worried that your food would run out before you got the money to buy more. Never true 09/10/19 25 Within the past 12 months, t he food you bought just didn't last and you didn't have money to get more. Never true 09/10/2024 PRAPARE - Transportation Answer Date Re corded In the past 12 months, has l ack of transportation kept you from medical appointments or from getting medications? No 10/2024 In the past 12 months, has l ack of transportation kept you from meetings, work, or from getting things needed for daily living? No 09/10/2024 Housing Stability Vital Sign Answer Viraj e Recorded In the last 12 months, was t here a time when you were not able to pay the mortgage or rent on time? No 09/10/2024 In the past 12 months, how m any times have you moved where you were living? 0 09/10/2024 At any time in the past 12 m [facility], were you homeless or living in a usp (including now)? No 09/10/2024 Comments No Sex and Gender Information Value Date Recorded Sex Assigned at Female 09/10/2024 9:24 AM FULL STACK WEB DEVELOPER Legal Sex Female 6:46 PM CDT Gender Identity Female 07/20/2021 12:04 PM FULL STACK WEB DEVELOPER Sexual Orientation Straight 07/20/2021 12 :04 PM FULL STACK WEB DEVELOPER Occupation Industry Job Start Date Job End Date Not on file Not on file Not on file Not on file Last Filed Vital Signs Vital Sign Reading Time Taken Comments Blood Pressure 136/87 11/28/2024 10:56 AM CDT Pulse 96 11/28/2024 10:56 AM CDT Temperature 36.2 C (97.2 F) 11/28/2024 10:56 AM CDT Respiratory Rate 18 10/09/2024 1:01 PM FULL STACK WEB DEVELOPER Oxygen Saturation 94% 11/28/2024 10:56 AM CDT Inhaled Oxygen Concentration - - Weight 110.9 kg (244 lb 8 oz) 11/28/2024 10:56 A M CDT Height 162.6 cm (5' 4) 11/28/2024 10:56 AM CDT Body Mass Index 41.97 11/28/2024 10:56 AM CDT Plan of Treatment Upcoming Encounters Date Type Department Care Team (Late st Contact Info) Description 03/04/2025 10:30 AM CDT Appointment [facility] [address] Shanon Sharma MD [address] [place] [phone] 03/04/2025 11:00 AM CDT Appointment [facility] [address] Shanon Sharma MD [facility] [place] [address] 03/13/2025 9:20 AM CDT Office Visit [facility] [address], [address] [place] [id number] Homero Camargo MD [address] [place] [address] Health Maintenance Due Date Last Done Comments Colorectal Cancer Screening Colonoscopy (10 Years) 1968 DTaP, Tdap and Td Vaccines ( 1 - Tdap) 12/27/1987 Hepatitis B Vaccines (1 of 3 - 19+ 3-dose series) 12/27/1987 Mammogram Screening 2008 Pneumococcal Vaccine: 50+ Years (1 of 1 - PCV) 2018 Annual Physical 02/02/2022 02/02/2021 Zoster Vaccines (2 of 2) 08/04/2022 06/09/2022 COVID-19 Vaccine (4 - 2023-2 5 season) 2024 06/09/2022, 11/25/2020, 11/03/2020 Hepatitis C Completed 07/03/2021, 05/25/2021 PHQ-2 (Physician Coral) Completed 10/09/2024 Meningococcal B Vaccine Aged Out No l onger eligible based on patient's age to complete this topic Meningococcal Vaccine Aged Out No kamilla kandace eligible based on patient's age to complete this topic RSV Immunizations Under 20 Months Aged Out No longer eligible b ased on patient's age to complete this topic Goals Goal Patient Goal Type Associated Problems Recent Progress Patient-Stated? Author Health - patient able to perform ADLs independently General No Lupis Noel, pepper cutter - family caregiver with be involved in care transitions and discharge planning General No Codie Myers, FILLETERrental car ferry driver Devices Implanted Type Area Catheterization Laboratory Technician Device Identifier Shelf Expiration Date Model / Serial / Lot Neurostimulator [employer] - [id number] Implanted:Qty: 1 on 06/16/2023 by Woody Beasley MD at [facility] Stimulator Implant N/A: Back [employer] 08/21/2024 [id number] / [id number] / Description:MR CONDITIONAL A T 1.5T OR 3 T, NEED REMOTE TO CHECK FULL BODY ELIGIBILITY AND TURN OFF STIMULATION, FOLLOW SCAN CONDITIONS FOR SCANNER AND BODY PART BEING SCANNED(MRI TECHNICAL MANUAL Interstim Surescan Mri Lead Kit Implanted:Qty: 1 on 06/16/2023 by Woody Beasley MD at [facility] Stimulator Implant N/A: Back [employer] [id number] 04/27/2024 [id number] / / [id number] Procedures Procedure Name Priority Date/Time Associated Diagnosis Comments HEPATITIS PANEL,ACUTE Routine 07/03/2021 7:36 AM FULL STACK WEB DEVELOPER from Last 3 Months or Most Recently Relevant to Health Maintenance Results * HEPATITIS PANEL,ACUTE (07/03/2021 7:36 AM FULL STACK WEB DEVELOPER) HEPATITIS B SURFACE AG NON-REACTI VE NON-REACTI VE 07/03/2021 2:22 PM FULL STACK WEB DEVELOPER [facility] HEP B CORE IGM NON-REACTI VE NON-REACTI VE 07/03/2021 2:22 PM FULL STACK WEB DEVELOPER [facility] HAV IGM NON-REACTI VE NON-REACTI VE 07/03/2021 2:22 PM FULL STACK WEB DEVELOPER [facility] HEPATITIS C AB NON-REACTI VE NON-REACTI VE 07/03/2021 2:22 PM FULL STACK WEB DEVELOPER [facility] 07/03/2021 7:3 6 AM FULL STACK WEB DEVELOPER Katy Staton MD LABORATORY Final Re sult [facility] [address] [facility] [place] [address], from Last 3 Months or Most Recently Relevant to Health Maintenance [place] [address] [facility] Advance Directives * Full Code (Latest Code Status on File) Date Activated Date Inactivated Comments 09/10/2024 1:36 PM 09/12/2024 1:04 PM * Full Code Date Activated Date Inactivated Comments 12/22/2021 4:40 PM 12/25/2021 1:09 PM * Full Code Date Activated Date Inactivated Comments 07/02/2021 11:11 PM 07/03/2021 8:32 PM * Full Code Date Activated Date Inactivated Comments 04/30/2019 10:15 PM 05/01/2019 4:10 PM Care Teams Deputy Jailer Relationship Specialty Start Date End Date Magalie Hung MD [address] [place] [address] PCP - General FAMILY PRACTICE 05/28/24 Segun Grimaldo MD [address] [place] [address] [place] [id number] Mikie Trailer Sections Assembler CARDIOVASCULAR DISEASE 03/21/19
[2025-02-12 11:25] LABS: Anion Gap 13 mmol/L (4-12); Blood Urea Nitrogen 17 mg/dL (7-17); Calcium 9.3 mg/dL (8.4-10.2); Carbon Dioxide 26 mmol/L (22-30); Chloride 99 mmol/L (98-107); Estimated Glomerular Filt Rate > 60; Glucose 199 mg/dL (65-110); Potassium 3.5 mmol/L (3.4-5.0); Sodium 138 mmol/L (137-145)
== END 2025-02-12 10:47 | disposition home or self-care (01) ==
PROVIDERS: Anesthesiology; Visit Provider Urology
DX: Z79.899 Other long term (current) drug therapy (principal)
CPT/HCPCS: 36415; 80048

== ENCOUNTER 2025-02-15 00:42 | Day surgery (SDC) | payer OTHER, SELFPAY ==
[2025-02-06 18:07] VITALS: BMI 40.8
--- NOTE | 2025-02-06 18:10 | SUR.PREOP ---
Report to the Outpatient Waiting Room, entrance under the green pavilion located off [facility], at time _0700___ on date __[id number]__. Planned Procedure Time: _0900___.? Time changes happen often and if your time is changed the preop area will call you the afternoon before. - You and your visitor will be asked to self-screen and do not enter if you have any COVID symptoms. Please call surgeon if you need to reschedule. - A mask is optional within the hospital at this time. Patients may have clear liquids (water, carbonated beverages, clear teas, apple juice) until 3 hours prior to surgery with a maximum of 20 ounces. - No food from midnight until time of surgery and no smoking, or chewing tobacco (or any form of nicotine). No chewing gum, candy or mints. - Infants may have breast milk until 4 hours before surgery, formula 6 hours prior to surgery. - Children will be allowed to drink immediately following surgery.? If applicable, please bring a bottle or sippy cup to assist with drinking. Juice, water, soda, and popsicles are readily available.? For infants on formula, please bring formula the day of surgery.? Pacifiers are allowed. Take only the following medications with a SIP of water on the morning of surgery: Vraylar, Valproate, Effexor DO NOT STOP ANY OF YOUR OTHER PRESCRIPTION MEDICATIONS PRIOR TO SURGERY EXCEPT THE FOLLOWING Hold all vitamins and supplements for 3 days per anesthesiologist. Medications to discontinue per physician Hold 81mg aspirin for x1 week per physician Date to take last yiyb 83-11-24 Please no make-up, nail [place], hairspray, perfume, deodorant, or body powder the day of surgery.? No jewelry (including any body piercings) or valuables the day of surgery, leave them at home.? Please take a shower or bath the night before, or the morning of, surgery with an antibacterial soap.? Wear comfortable, loose fitting clothing.? Children are encouraged to wear pajamas. - Jewelry must be removed prior to entering the operating room.? Rings and piercings that are not removed may be cut off. - The hospital will not accept responsibility for valuables.? - Please leave all valuables, including medications, at home the day of surgery. If you are going home after surgery, a licensed sprinkling truck driver must drive you home.? - NO public transportation without another adult if you receive anesthesia. - We recommend that an adult stay with you for 24 hours following discharge. - We also recommend that you do not drive, make important decision, drink alcoholic beverages, or take any drugs that were not prescribed by your health care provider for at least 24 hours after your discharge time. For Pediatric surgeries, we recommend two adults accompany the child home. Follow any additional instructions given to you from your surgeon. Telephone instructions given to __Nicole and asked if any additional questions and then verbalized understanding. Patient advised to call surgeon office or pre surgery nurse liaison [phone] if any additional questions.
--- NOTE | 2025-02-12 18:32 | PM.IMHP ---
H&P: HPI History of Present Illness Date/Time: 02/12/25 18:32 Chief Complaint: incontinence Narrative: symptomatic SUSANNAH Review of Systems Review of Systems: All systems reviewed & are unremarkable except as noted in HPI and below [facility] Social History Social History Smokeless tobacco user: chewing tobacco Smoking end date: 08/08/90 Additional smoking assessment comments: chewing tobacco for 1 year Alcohol intake: never Living arrangements: with family Additional living arrangements comments: Spiritual care concerns: No Meds Home Medications and Allergies Home Medications ?Medication ?Instructions ?Recorded ?Confirmed ?Type aspirin 81 mg capsule 81 mg PO DAILY 02/06/25 02/06/25 History cariprazine 3 mg capsule (Vraylar) 3 mg PO Q24H 02/06/25 02/06/25 History divalproex 250 mg tablet,extended 250 mg PO DAILY 02/06/25 02/06/25 History release 24 hr hydrochlorothiazide 25 mg tablet 25 mg PO DAILY 02/06/25 02/06/25 History losartan 50 mg tablet 50 mg PO DAILY 02/06/25 02/06/25 History omeprazole 10 mg capsule,delayed 10 mg PO DAILY 02/06/25 02/06/25 History release pravastatin 40 mg tablet 40 mg PO DAILY 02/06/25 02/06/25 History venlafaxine 150 mg 150 mg PO DAILY 02/06/25 02/06/25 History capsule,extended release 24 hr Allergies Allergy/AdvReac Type Severity Reaction Status Date / Time No Known Allergies Allergy Verified 02/06/25 18:08 Exam Narrative: + urethral mobility Assessment and Plan Assessment and plan (1) SUSANNAH (stress urinary incontinence, female): Code(s): N39.3 - Stress incontinence (female) (male) Status: Acute Assessment and Plan: urethral sling/cystoscopy
[2025-02-15] VITALS (7 sets, daily range): BP systolic 122–134; BP diastolic 68–80; PULSE 82–97; RESP 11–20; TEMP 36.5–37.4; O2SAT 98–100; BMI 42.1
--- OUTSIDE RECORDS SUMMARY | 2025-02-15 00:44 | XMS_ITS | Clinical Summary ---
Author Organization [facility] Address [address] Attn: Epic Prelude ADT [place] [address] Care Team Providers Care Dental Officer Name Role Phone Unavailable Primary Care Provider [...] UNTIL GONE 41 Capsule 07/14/2022 4:17 PM TORTILLA MAKER 2 Active HYDROcodone-aceta minophen (NORCO) 5-325 mg tablet Take 1 tablet by mouth every 6 (six) hours as needed for Pain 20 Tablet 07/15/2022 1:03 PM TORTILLA MAKER 2 Active metroNIDAZOLE (FLAGYL) 500 mg tablet Take 1 Tablet (500 mg) by mouth every 6 hours until gone 28 Tablet 07/16/2022 3:43 PM TORTILLA MAKER 2 Active HYDROcodone-aceta minophen (NORCO) 7.5-325 mg Tablet Take 1 Tablet by mouth every 4 to 6 hours as needed for dental pain. Max Daily Amount: 6 Tablets 20 Tablet 07/22/2022 5:15 PM TORTILLA MAKER 2 Active oxyCODONE-acetami nophen (PERCOCET) 5-325 mg tablet Take 1 to 2 tablets by mouth every 6 (six) hours as needed for Pain. 90 Tablet 09/23/2022 12:07 PM TORTILLA MAKER 3 Active venlafaxine (EFFEXOR XR) 150 mg [...] daily. 90 Capsule 1 08/07/2023 11:26 AM TORTILLA MAKER 3 Active traMADoL (ULTRAM) 50 mg tablet Take 1 Tablet (50 mg) by mouth every 6 hours as needed for pain 20 Tablet 06/01/2023 1:06 PM CDT 3 Active venlafaxine (EFFEXOR XR) 150 mg Extended Release 24 hour capsule Take 1 capsule (150 mg) by mouth daily with food 90 Capsule 06/14/2023 12:00 PM TORTILLA MAKER 3 Active oxyCODONE-acetami nophen (PERCOCET) 5-325 mg tablet Take one tablet by mouth every 4 hours as needed for pain 20 Tablet 06/16/2023 4:22 PM TORTILLA MAKER 3 Active cariprazine (Vraylar) 3 mg Capsule capsule Take 1 capsule (3 mg) by mouth daily 90 Capsule 3 Active HYDROcodone-aceta minophen (NORCO) 5-325 mg tablet Take 1 tablet by mouth every 6 (six) hours as needed for Pain. 20 Tablet 06/21/2023 3:33 PM TORTILLA MAKER 3 Active oxyCODONE-acetami nophen (PERCOCET) 5-325 mg tablet Take 1 Tablet by mouth every 4 hours as needed for pain 20 Tablet 06/28/2023 9:37 AM TORTILLA MAKER 3 Active cariprazine (Vraylar) 3 mg Capsule [...] for Pain 35 Tablet 09/14/2023 11:30 AM TORTILLA MAKER 4 Active venlafaxine (EFFEXOR XR) 150 mg [...] daily. 30 Tablet 5 06/24/2024 3:10 PM TORTILLA MAKER 4 Active potassium chloride (KLOR-CON) 10 mEq Extended Release tablet Take 2 tablets (20 mEq total) by mouth daily. 60 Tablet 5 09/22/2024 4:37 PM TORTILLA MAKER 5 Active atogepant (Qulipta) 60 mg Tablet Take 1 tablet (60 mg total) by mouth daily. 30 Tablet 11 5 Active HYDROcodone-aceta minophen (NORCO) 5-325 mg tablet Take 1 tablet by mouth every 8 (eight) hours as needed for Pain. 15 Tablet 10/13/2024 4:49 PM TORTILLA MAKER 5 Active naloxone (NARCAN) 4 mg/spray [place], Non-Aerosol 1 spray by Nasal route as [...] INFLUENZA VACCINE (#1) [address] [place] [id number] RX [employer] (INTERNAL) [facility] [employer] RX [employer] Commercial
--- OUTSIDE RECORDS SUMMARY | 2025-02-15 00:44 | XMS_ITS | Encounter Summary ---
Author Organization [facility] Address [facility] [place] [address] Care Team Providers Care Hris Analyst Name Role Phone Segun Grimaldo MD Unavailable [phone] Bhaskar Kahn MD Primary Care Provider Un available Magalie Hung MD Primary Care Provider [phone] Encounter Details Date Type Department Care Team (Late st Contact Info) Description 12/11/2021 MobileCausehart Message Enc [facility] - [address] [place] [address] Mychart, [facility] Provider BOTOX follow up Social History Tobacco [...] Sex Assigned at Female 09/10/2024 9:24 AM ASSISTANT PRESS OPERATOR OFFSET Legal Sex Female 6:46 PM CDT Gender Identity Female 07/20/2021 12:04 PM ASSISTANT PRESS OPERATOR OFFSET Sexual Orientation Straight 07/20/2021 12 :04 PM ASSISTANT PRESS OPERATOR OFFSET Occupation Industry Job Start Date Job End [...] Assessment Author Status No 07/03/2021 12:33 AM ASSISTANT PRESS OPERATOR OFFSET Acti ve * RETIRED Are you blind or do you have serious difficulty seeing, even when wearing glasses? Answer Date of Assessment Author Status No 07/03/2021 1:00 AM ASSISTANT PRESS OPERATOR OFFSET Activ e * Do you have serious difficulty walking or climbing stairs? Answer Date of Assessment Author Status No 07/03/2021 1:00 AM ASSISTANT PRESS OPERATOR OFFSET Fco Flores RN Active * Do you have difficulty dressing or bathing? Answer Date of Assessment Author Status No 07/03/2021 1:00 AM ASSISTANT PRESS OPERATOR OFFSET Fco Flores RN Active * Because of a physical, mental, or emotional condition, do you have difficulty doing errands alone such as visiting a doctor's office or shopping? Answer Date of Assessment Author Status No 07/03/2021 1:00 AM ASSISTANT PRESS OPERATOR OFFSET Fco Flores RN Active documented as of this encounter Mental Status * Because of a physical, mental, or emotional condition, do you have serious difficulty concentrating, remembering, or making decisions? Answer Entry Date Author Status No 07/03/2021 1:00 AM ASSISTANT PRESS OPERATOR OFFSET Fco Flores RN Active documented in this encounter Plan of Treatment Upcoming Encounters Date Type Department Care Team (Late st Contact Info) Description 03/04/2025 10:30 AM CDT Appointment [facility] [place] [address] Shanon Sharma MD [address] [place] [address] 03/04/2025 11:00 AM CDT Appointment [facility] [place] [address] Shanon Sharma MD [address] [place] [address] 03/13/2025 9:20 AM CDT Office Visit [facility] [place] [address] [place] [phone] Homero Camargo MD 3 [facility] [place] [address] documented as of this encounter Goals Goal Patient Goal Type Associated Problems Recent Progress Patient-Stated? Author Health - patient able to perform ADLs independently General No Luips Noel, RN documented as of this encounter Visit Diagnoses Not on filedocumented in this encounter Additional Health Concerns Assessment Noted Time PHQ-9 Depression Total Score: 0 07/27/20 11:06 AM ASSISTANT PRESS OPERATOR OFFSET documented as of this encounter Care Teams Hris Analyst Relationship Specialty Start Date End Date Bhaskar Kahn MD 3 [facility] [address] [place] [address] PCP - General FAMILY PRACTICE 12/10/20 05/27/24 [place] [address] [place] [address] PCP - General FAMILY PRACTICE 05/28/24 Segun Grimaldo MD [facility] [address] [place] [address] [employer] Computer Programming Supervisor CARDIOVASCULAR DISEASE 03/21/19 documented as of this encounter
--- OUTSIDE RECORDS SUMMARY | 2025-02-15 00:44 | XMS_ITS ---
Author Organization [facility] [employer] [place] ([address]) Address [address] [place] [address] Care Team Providers Care Arcade Games Mechanic Name Role Phone Bhaskar Kahn Primary Care Provider UnaDebbie Cruz Unavailable [phone] [facility], Provider Unavailable Unavailab le Allergies Allergen (clinical drug ingredient) Drug/Non Drug Allergy documented on EMR Reaction Allergy Type Onset Date Status Information temporarily unavailable VICODIN (uncoded) Itching Allergy Active REASON FOR VISIT [facility] To [facility] Conversion Encounter Medications Medication SIG (Take, Route, [...] ctive Encounters Encounter Location Date Provider Diagnosis [facility] [place] [address] 01/21/2024 Provider [employer]-Migration Plan Of Treatment No Information Progress Notes * YANNJonoaDOB: [birth year] (54 yo F)Acc No.[id number]:01/21/2024 Patient: Nicole RILEY Provider: Nely Bonilla :1970 A ge:53 Y S ex:Female Date:01/21/2024 Address:[address] [place] [address] , [id number] Pcp:Bhaskar Kahn Subjective: * Chief Complaints: * 1 . [facility]. * Medical History: * [...] Electronic signature of Juliano tolliverr [facility] on 02/15/2025 at 12:44 AM CDT Sign off status: Pending * Provider: Nely Bonilla Date: 0 01/21/2024 Generated for Laureen barger/Elia/Rick on: 0 02/15/2025 12:44 AM CDT
--- OUTSIDE RECORDS SUMMARY | 2025-02-15 00:44 | XMS_ITS | Encounter Summary ---
Author Organization [facility] Address [facility] [place] [address] Care Team Providers Care Magazine Writer Name Role Phone Segun Grimaldo MD Unavailable Bhaskar Kahn MD Primary Care Provider Un available Magalie Hung MD Primary Care Provider [phone] Encounter Details Date Type Department Care Team (Late st Contact Info) Description 12/14/2021 Therapy Plan [facility] In[facility] [place] [id number] Homero Camargo MD 3 [place], [place] [id number] Social History Tobacco Use Types Packs/Day Years [...] Sex Assigned at Female 09/10/2024 9:24 AM MC KAY STITCHER Legal Sex Female 6:46 PM CDT Gender Identity Female 07/20/2021 12:04 PM MC KAY STITCHER Sexual Orientation Straight 07/20/2021 12 :04 PM MC KAY STITCHER Occupation Industry Job Start Date Job End [...] Assessment Author Status No 07/03/2021 12:33 AM MC KAY STITCHER Acti ve * RETIRED Are you blind or do you have serious difficulty seeing, even when wearing glasses? Answer Date of Assessment Author Status No 07/03/2021 1:00 AM MC KAY STITCHER Activ e * Do you have serious difficulty walking or climbing stairs? Answer Date of Assessment Author Status No 07/03/2021 1:00 AM MC KAY STITCHER Fco Flores RN Active * Do you have difficulty dressing or bathing? Answer Date of Assessment Author Status No 07/03/2021 1:00 AM MC KAY STITCHER Fco Flores RN Active * Because of a physical, mental, or emotional condition, do you have difficulty doing errands alone such as visiting a doctor's office or shopping? Answer Date of Assessment Author Status No 07/03/2021 1:00 AM MC KAY STITCHER Fco Flores RN Active * Calculated C-SSRS Risk Score (Lifetime/Recent) Answer Date of Assessment Author Status No Risk Indicated 12/15/2021 2:43 PM CDT Adriana Tristan RN Active * [place] Suicide Severity Rating Scale (Screener/Recent Self-Report) Question [...] Date Author Status No 07/03/2021 1:00 AM MC KAY STITCHER Fco Flores RN Active documented in this encounter Plan of Treatment Upcoming Encounters Date Type Department Care Team (Late st Contact Info) Description 03/04/2025 10:30 AM CDT Appointment [facility] [place] [address] Shanon Sharma MD [address] [place] [phone] 03/04/2025 11:00 AM CDT Appointment [facility] [place] [address] Shanon Sharma MD [address] [place] [phone] 03/13/2025 9:20 AM CDT Office Visit [facility] [place], [address] [place] [phone] Homero Camargo MD 3 [facility] [place] [address] documented as of this encounter Goals Goal [...] Total Score: 0 07/27/20 21 11:06 AM MC KAY STITCHER documented as of this encounter Care Teams Magazine Writer Relationship Specialty Start Date End Date Bhaskar Kahn MD 3 [facility] [address] [place] [address] PCP - General FAMILY PRACTICE 12/10/20 05/27/24 Magalie Hung MD [address] [place] [address] PCP - General FAMILY PRACTICE 05/28/24 Segun Grimaldo MD 3 [facility] [address] [place] [address] Seligman Planning Director CARDIOVASCULAR DISEASE 03/21/19 documented as of this encounter
--- OUTSIDE RECORDS SUMMARY | 2025-02-15 00:44 | XMS_ITS | Encounter Summary ---
Author Organization [facility] Care Team Providers Care Psychology Tech Name Role Phone Aaliyah Ramos MD Primary Care Provider [phone] Bhaskar Kanh MD Primary Care Provider Magalie Hung MD Unavailable Magalie Hung MD Primary Care Provider [phone] Homero Camargo MD Unavailable [phone] Encounter Details Date Type Department Care Team (Latest Contact Info) Description 04/23/2016 Orders Only [facility] ProviderJessica MD [address] [place] [address] Social History Tobacco Use Types Packs/Day Years Used Date Smoking Tobacco: Never Assessed Comments Unknown Sex and Gender Information Value Date Recorded Sex Assigned at Not on file Legal Sex Female 1:20 AM PEER SPECIALIST Gender Identity Not on file Sexual Orientation [...] on filedocumented in this encounter Care Teams Psychology Tech Relationship Specialty Start Date End Date Aaliyah Ramos MD PCP - General Internal Medicine 08/24/18 03/14/23 Bhaskar Kahn MD [address] [address] PCP - General Family Medicine 03/15/23 08/30/24 Magalie [facility] MD [facility] [address] [address] PCP - General Family Medicine 08/31/24 Magalie Hung MD [address] [place] [address] Family Medicine 07/19/24 Homero Camargo MD [address] [address] [address] Referring Physician Neurology 09/19/24 documented as of this encounter
--- OUTSIDE RECORDS SUMMARY | 2025-02-15 00:44 | XMS_ITS | Encounter Summary ---
Author Organization [facility] Care Team Providers Care Fan Mail Editor Name Role Phone Aaliyah Ramos MD Primary Care Provider [phone] Bhaskar Kahn MD Primary Care Provider Magalie Hung MD Unavailable Magalie Hung MD Primary Care Provider [phone] Homero Camargo MD Unavailable [phone] Encounter Details Date Type Department Care Team (Latest Contact Info) Description 04/20/2016 Orders Only [facility] CLINCON[facility] ProviderJessica MD [address] [place] [address] Social History Tobacco Use Types Packs/Day Years Used Date Smoking Tobacco: Never Assessed Comments Unknown Sex and Gender Information Value Date Recorded Sex Assigned at Not on file Legal Sex Female 1:20 AM MANAGER HOSPITALITY Gender Identity Not on file Sexual Orientation [...] on filedocumented in this encounter Care Teams Fan Mail Editor Relationship Specialty Start Date End Date Aaliyah Ramos MD PCP - General Internal Medicine 08/24/18 03/14/23 Bhaskar Kahn MD [address] [place] [place] [address] PCP - General Family Medicine 03/15/23 08/30/24 Magalie Hung MD 3 [facility] [address] [address] PCP - General Family Medicine 08/31/24 Magalie Hung MD [address] [place] [address] Family Medicine 07/19/24 Homero Camargo MD [address] [facility] [address] Referring Physician Neurology 09/19/24 documented as of this encounter
--- OUTSIDE RECORDS SUMMARY | 2025-02-15 00:45 | XMS_ITS | Referral Summary ---
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 Not on file Not on file Not on file Last Filed Vital Signs Vital Sign Reading Time Taken Comments Blood Pressure 130/90 10/08/2021 8:22 AM HAND STRIPPER Pulse 80 10/08/2021 8:22 AM HAND STRIPPER Temperature 36.8 C (98.3 F) 04/23/2016 9:40 AM CDT Respiratory Rate - - Oxygen Saturation 94% 04/23/2016 9:40 AM CDT Inhaled Oxygen Concentration - - Weight 107 kg (236 lb) 08/31/2024 8:55 AM HAND STRIPPER Height 162.6 cm (5' 4) 08/31/2024 8:55 AM HAND STRIPPER Body Mass Index 40.51 08/31/2024 8:55 AM HAND STRIPPER Plan of Treatment Not on file Insurance [facility] [place] [address] [facility] [place] [address] [facility] Care Teams Professional Development Director Relationship Specialty Start Date End Date Magalie Hung MD 3 [facility] [address] [place] [address] PCP - General Family Medicine 08/31/24 Magalie Hung MD [address] [place] [address] Family Medicine 07/19/24 Homero Camargo MD 3 [facility] [address] [place] [address] Referring Physician Neurology 09/19/24
--- OUTSIDE RECORDS SUMMARY | 2025-02-15 00:45 | XMS_ITS | Encounter Summary ---
Author Organization [facility] Address [facility] [place] [address] Care Team Providers Care Miller Apprentice Name Role Phone Segun Grimaldo MD Unavailable [phone] Bhaskar Kahn MD Primary Care Provider Un available Magalie Hung MD Primary Care Provider [phone] Encounter Details Date Type Department Care Team (Late st Contact Info) Description 03/28/2021 MyChart Message Enc [facility] Family Medicine [address] [address] Bhaskar Kahn MD Question Social [...] Sex Assigned at Female 09/10/2024 9:24 AM STORE OPERATIONS MANAGER Legal Sex Female 6:46 PM CDT Gender Identity Female 07/20/2021 12:04 PM STORE OPERATIONS MANAGER Sexual Orientation Straight 07/20/2021 12 :04 PM STORE OPERATIONS MANAGER Occupation Industry Job Start Date Job [...] Info) Description 03/04/2025 10:30 AM CDT Appointment [facility] [address] [place] [address] [place] [address] [place] [phone] 03/04/2025 11:00 AM CDT Appointment [facility] [address] [place] [address] Shanon Sharma MD [address] [place] [phone] 03/13/2025 9:20 AM CDT Office Visit [facility] [address] [place] [address] Homero Camargo MD [address] [place] [address] documented as of this encounter Visit Diagnoses Not on filedocumented in this encounter Care Teams Miller Apprentice Relationship Specialty Start Date End Date Bhaskar Kahn MD 3 [facility] [employer] [address] [place] [address] PCP - General FAMILY PRACTICE 12/10/20 05/27/24 Magalie Hung MD [address] [place] [address] PCP - General FAMILY PRACTICE 05/28/24 Segun Grimaldo MD 3 [facility] [address] [place] [address] Buda Shotblast Operator CARDIOVASCULAR DISEASE 03/21/19 documented as of this encounter
--- OUTSIDE RECORDS SUMMARY | 2025-02-15 00:45 | XMS_ITS ---
Author Organization [facility] Address [facility] [place] [address] Care Team Providers Care Circus Train Supervisor Name Role Phone Segun Grimaldo MD Unavailable [phone] Magalie Hung MD Primary Care Provider [phone] Active Problems Problem Noted Date Diagnosed Date [...] (05/18/2023): Added automatically from request for surgery [id number] Acquired deformity of knee 05/11/2023 Adhesive capsulitis of shoulder 05/11/2023 Overview (05/11/2023): doing well with current program, much improved rom Benign paroxysmal positional vertigo 05/11/2023 Chronic pain syndrome 05/11/2023 Overview (10/09/2024): - only uses norco when going on trips to [place] d/t increased amount of walking - CSA [...] 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 ([facility]) 05/11/2023 Menorrhagia 05/11/2023 Migraine with typical aura 05/11/2023 Myopia 05/11/2023 Otalgia, left ear 05/11/2023 Panic disorder without agoraphobia 05/11/2023 Patellar tendinitis 05/11/2023 Persistent insomnia 05/11/2023 Postcalcaneal bursitis of left foot 05/11/2023 Presbyopia 05/11/2023 Regular astigmatism 05/11/2023 Tachycardia 05/11/2023 Tremor 05/11/2023 Vitamin D deficiency 05/11/2023 Chronic migraine without aura 03/11/2023 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, unspecified whether recurrent ([facility]) 08/30/2022 Borderline personality disorder ([facility] ) 08/30/2022 Intractable migraine 12/22/2021 Status migrainosus 12/14/2021 Migraine without aura and wi thout status migrainosus, not intractable 08/17/2021 Chronic pain of both knees 05/25/2021 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
--- OUTSIDE RECORDS SUMMARY | 2025-02-15 00:45 | XMS_ITS | Clinical Summary ---
Author Organization [facility] Address [address] [place] [address] Care Team Providers Care Security Systems Technician Name Role Phone Magalie Hung MD Unavailable Magalie Hung MD Primary Care Provider [phone] Homero Camargo MD Unavailable [phone] Allergies Active Allergy Reactions Criticality Noted Date [...] (08/28/2024): Added automatically from request for surgery [id number] Acquired deformity of knee 05/11/2023 Adhesive capsulitis [...] on file Legal Sex Female 1:20 AM SHELL FREEZING MACHINE OPERATOR Gender Identity Not on file Sexual Orientation [...] Comments Blood Pressure 130/90 10/08/2021 8:22 AM SHELL FREEZING MACHINE OPERATOR Pulse 80 10/08/2021 8:22 AM SHELL FREEZING MACHINE OPERATOR Temperature 36.8 C (98.3 F) 04/23/2016 9:40 AM CDT Respiratory Rate - - Oxygen Saturation 94% 04/23/2016 9:40 AM CDT Inhaled Oxygen Concentration - - Weight 107 kg (236 lb) 08/31/2024 8:55 AM SHELL FREEZING MACHINE OPERATOR Height 162.6 cm (5' 4) 08/31/2024 8:55 AM SHELL FREEZING MACHINE OPERATOR Body Mass Index 40.51 08/31/2024 8:55 AM SHELL FREEZING MACHINE OPERATOR Plan of Treatment Health Maintenance Due Date [...] complete this topic Insurance [address] [place], [place] [id number] [place] [address] [facility] Care Teams Security Systems Technician Relationship Specialty Start Date End Date Magalie Hung MD [address] [place] [address] [place] [address] PCP - General Family Medicine 08/31/24 Magalie Hung MD [address] [place] [address] Family Medicine 07/19/24 Homero Camargo MD [address] [address] Referring Physician Neurology 09/19/24
--- OUTSIDE RECORDS SUMMARY | 2025-02-15 00:45 | XMS_ITS | Clinical Summary ---
Author Organization [facility] Address [address] [place] [address] Care Team Providers Care Extension Supervisor Name Role Phone Segun Grimaldo MD Unavailable [phone] Magalie Hung MD Primary Care Provider [phone] Allergies Active Allergy Reactions Criticality Noted Date [...] (05/18/2023): Added automatically from request for surgery [id number] Acquired deformity of knee 05/11/2023 Adhesive capsulitis of shoulder 05/11/2023 Overview (05/11/2023): doing well with current program, much improved rom Benign paroxysmal positional vertigo 05/11/2023 Chronic pain syndrome 05/11/2023 Overview (10/09/2024): - only uses norco when going on trips to [place] d/t increased amount of walking - CSA [...] 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 ([facility]) 05/11/2023 Menorrhagia 05/11/2023 Migraine with typical [...] disorder without psychotic features, unspecified whether recurrent ([facility]) 08/30/2022 Borderline personality disorder (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) 05/11/2019 Emotional stress 05/11/2019 Class 3 severe obesity due t o excess calories with serious comorbidity and body mass index (BMI) of 40.0 to 44.9 in adult 05/11/2019 Stroke ([facility]) 08/08/2012 Overview (03/20/2019): dissected left carotid artery, now takes plavix/lipitor for this Dyslipidemia GERD (gastroesophageal reflux disease) Resolved Problems Problem Noted Date Diagnosed Date Resolved Date Medication overuse headache 05/11/2023 09/01/2023 Hyperlipidemia 05/11/2023 01/11/2024 Hypokalemia 07/02/2021 11/05/2021 ERIKA (obstructive sleep apnea) 05/11/2019 01/26/2023 Encounters Date Type Department Care Team Description 01/22/2025 [employer] Message Enc [facility] [place] - [address], [address] [place] [address] [facility] Provider reschedule 01/22/2025 Telephone [facility] - [address] [place] [address] Homero Camargo MD Reschedule 01/11/[address] [address] Magalie Hung MD Breast Problem (Per note pt that did breast exam and found a lump) 01/11/[address] [address] Magalie Hung MD Breast Problem 12/27/2024 Scan Finder[employer] INFO SRVCS Scanned, [facility] 11/29/[address] [address] Magalie Hung MD Referral (Pt is requesting a referral to Dr Woody beasley for bladder implant check) 11/29/[address] [address] Magalie Hung MD Referral 11/28/2024 11:20 AM CDT [facility] [address] [place] [address] Homero Camargo MD Botox (migraines [...] 0.6 oz pur e alcohol) 1-2 year [facility] Utilities Answer Date Recorded In the past 12 months has [facility] [employer], oil, or water [employer] threatened to shut off services in your [...] any time in the past 12 m [facility], were you homeless or living in a senior care (including now)? No 09/10/2024 Comments No Sex and Gender Information Value Date Recorded Sex Assigned at Female 09/10/2024 9:24 AM VISUAL C DEVELOPER Legal Sex Female 6:46 PM CDT Gender Identity Female 07/20/2021 12:04 PM VISUAL C DEVELOPER Sexual Orientation Straight 07/20/2021 12 :04 PM VISUAL C DEVELOPER Occupation Industry Job Start Date Job End Date Not on file Not on file Not on file Not on file Last Filed Vital Signs Vital Sign Reading Time Taken Comments Blood Pressure 136/87 11/28/2024 10:56 AM CDT Pulse 96 11/28/2024 10:56 AM CDT Temperature 36.2 C (97.2 F) 11/28/2024 10:56 AM CDT Respiratory Rate 18 10/09/2024 1:01 PM VISUAL C DEVELOPER Oxygen Saturation 94% 11/28/2024 10:56 AM CDT Inhaled Oxygen Concentration - - Weight 110.9 kg (244 lb 8 oz) 11/28/2024 10:56 A M CDT Height 162.6 cm (5' 4) 11/28/2024 10:56 AM CDT Body Mass Index 41.97 11/28/2024 10:56 AM CDT Plan of Treatment Upcoming Encounters Date Type Department Care Team (Late st Contact Info) Description 03/04/2025 10:30 AM CDT Appointment [facility] [address] Shanon Sharma MD [address] [place] [phone] 03/04/2025 11:00 AM CDT Appointment [facility] [address] Shanon Sharma MD [facility] [place] [address] 03/13/2025 9:20 AM CDT Office Visit [facility] [address], [address] [place] [phone] Homero Camargo MD [address] [place] [address] Health Maintenance Due Date Last Done Comments [...] Hepatitis C Completed 07/03/2021, 05/25/2021 PHQ-2 (Physician [place]) Completed 10/09/2024 Meningococcal B Vaccine Aged Out [...] perform ADLs independently General No Lupis Noel, research geneticist - family caregiver with be involved in care transitions and discharge planning General No Codie Myers, MARKETING COMMUNICATIONS ASSOCIATEstation master Devices Implanted Type Area Terra Cotta Setter Device Identifier Shelf Expiration Date Model / Serial / Lot Neurostimulator Medtronic - [id number] Implanted:Qty: 1 on 06/16/2023 by Woody Beasley MD at [facility] Stimulator Implant N/A: Back [employer] 08/21/2024 [id number] / [id number] / Description:MR CONDITIONAL A T 1.5T OR 3 T, NEED REMOTE TO CHECK FULL BODY ELIGIBILITY AND TURN OFF STIMULATION, FOLLOW SCAN CONDITIONS FOR SCANNER AND BODY PART BEING SCANNED(MRI TECHNICAL MANUAL Interstim Surescan Mri Lead Kit Implanted:Qty: 1 on 06/16/2023 by Woody Beasley MD at [facility] Stimulator Implant N/A: Back [employer] [id number] 04/27/2024 [id number] / [id number] Procedures Procedure Name Priority Date/Time Associated Diagnosis Comments HEPATITIS PANEL,ACUTE Routine 07/03/2021 7:36 AM VISUAL C DEVELOPER from Last 3 Months or Most Recently Relevant to Health Maintenance Results * HEPATITIS PANEL,ACUTE (07/03/2021 7:36 AM VISUAL C DEVELOPER) HEPATITIS B SURFACE AG NON-REACTI VE NON-REACTI VE 07/03/2021 2:22 PM VISUAL C DEVELOPER [facility] HEP B CORE IGM NON-REACTI VE NON-REACTI VE 07/03/2021 2:22 PM VISUAL C DEVELOPER [facility] HAV IGM NON-REACTI VE NON-REACTI VE 07/03/2021 2:22 PM VISUAL C DEVELOPER [facility] HEPATITIS C AB NON-REACTI VE NON-REACTI VE 07/03/2021 2:22 PM VISUAL C DEVELOPER [facility] 07/03/2021 7:3 6 AM VISUAL C DEVELOPER Katy Staton MD LABORATORY Final Re sult [facility] 3 [facility] [place] [address], from Last 3 Months or Most Recently Relevant to Health Maintenance [place] [address] [facility] Advance Directives * Full Code (Latest Code [...] 10:15 PM 05/01/2019 4:10 PM Care Teams Extension Supervisor Relationship Specialty Start Date End Date Magalie Hung MD [address] [place] [address] PCP - General FAMILY PRACTICE 05/28/24 Segun Grimaldo MD [address] [facility] [address] [place] [phone] Mikie Qm Consultant CARDIOVASCULAR DISEASE 03/21/19
--- OUTSIDE RECORDS SUMMARY | 2025-02-15 00:45 | XMS_ITS | Patient Health Record ---
Author Organization [facility] [employer] [place] ([address]) Address [address] [place] [address] Care Team Providers Care Annealing Torch Operator Name Role Phone Bhaskar Kahn Primary Care Provider UnaDebbie Cruz Unavailable [phone] Allergies Allergen (clinical drug ingredient) Drug/Non Drug Allergy documented on EMR Reaction Allergy Type Onset Date Status Information temporarily unavailable VICODIN (uncoded) Itching Allergy Active Reason For Referral No Information Medications Medication [...] Problem Status W/U Status Risk Notes Problem Information temporarily unavailable Anxiety disorder, unspecified (F41.9) Active confirmed Problem Information temporarily unavailable Borderline personality disorder (F60.3) Active confirmed Problem Information temporarily unavailable Other chronic allergic conjunctivitis (H10.45) Active confirmed Problem Information temporarily unavailable Allergic rhinitis due to pollen (J30.1) Active confirmed Problem Information temporarily unavailable Other allergic rhinitis (J30.89) Active confirmed Problem Information temporarily unavailable Chronic rhinitis (J31.0) Active confirmed Problem Information temporarily unavailable Mild persistent asthma, uncomplicated (J45.30) Active confirmed Problem Information temporarily unavailable Moderate persistent asthma, uncomplicated (J45.40) Active confirmed Problem Information temporarily unavailable Severe persistent asthma, uncomplicated (J45.50) Active confirmed Problem Information temporarily unavailable Toxic effect of venom of bees, accidental (unintentional), initial encounter (T63.441A) Active confirmed Problem Information temporarily unavailable Toxic effect of venom of wasps, accidental (unintentional), initial encounter (T63.461A) Active confirmed Problem Information temporarily unavailable Allergic rhinitis due to pollen (J30.1) Active confirmed Problem Information temporarily unavailable Allergic rhinitis due to animal (cat) (dog) hair and dander (J30.81) Active confirmed Problem Information temporarily unavailable Essential (primary) hypertension (I10) Active confirmed Problem Information temporarily unavailable Dermatitis due to ingested food (L27.2) Active confirmed Problem Information temporarily unavailable Pure hypercholesterolem ia, unspecified (E78.00) Active confirmed Problem Information temporarily unavailable Depression, unspecified (F32.A) Active confirmed Plan Of Treatment No Information Insurance Providers Payer Name Payer Address Payer Phone Subscriber Number Group Number Insured Name Patient Relationship to Insured Coverage Start Date Coverage End Date [facility] [address] [place] [address] [id number] Avinash Chin Spouse - patient is the [...]
--- OUTSIDE RECORDS SUMMARY | 2025-02-15 00:45 | XMS_ITS | Encounter Summary ---
Author Organization [facility] Address [facility] [place] [address] Care Team Providers Care General Labor Name Role Phone Segun Grimaldo MD Unavailable [phone] Bhaskar Kahn MD Primary Care Provider Un available Magalie Hung MD Primary Care Provider [phone] Encounter Details Date Type Department Care Team (Late st Contact Info) Description 07/07/2021 [employer] Message Enc [facility] Medical Group Family Medicine [address] [address] [facility] Provider Reschedule or video visit - 07/07/2021 [...] Sex Assigned at Female 09/10/2024 9:24 AM ASPHALT PAVING SUPERVISOR Legal Sex Female 6:46 PM CDT Gender Identity Female 07/20/2021 12:04 PM ASPHALT PAVING SUPERVISOR Sexual Orientation Straight 07/20/2021 12 :04 PM ASPHALT PAVING SUPERVISOR Occupation Industry Job Start Date Job End Date Not on file Not on file Not on file Not on file COVID-19 Exposure Response Date Recorded In the last month, have you been in contact with someone who was confirmed or suspected to have Coronavirus / COVID-19? No / Unsure 07/09/2021 3:00 PM ASPHALT PAVING SUPERVISOR documented as of this encounter Functional Status * RETIRED Are you deaf or do you have serious difficulty hearing Answer Date of Assessment Author Status No 07/03/2021 12:33 AM ASPHALT PAVING SUPERVISOR Acti ve * RETIRED Are you blind or do you have serious difficulty seeing, even when wearing glasses? Answer Date of Assessment Author Status No 07/03/2021 1:00 AM ASPHALT PAVING SUPERVISOR Activ e * Do you have serious difficulty walking or climbing stairs? Answer Date of Assessment Author Status No 07/03/2021 1:00 AM ASPHALT PAVING SUPERVISOR Fco Flores RN Active * Do you have difficulty dressing or bathing? Answer Date of Assessment Author Status No 07/03/2021 1:00 AM ASPHALT PAVING SUPERVISOR Fco Flores RN Active * Because of a physical, mental, or emotional condition, do you have difficulty doing errands alone such as visiting a doctor's office or shopping? Answer Date of Assessment Author Status No 07/03/2021 1:00 AM ASPHALT PAVING SUPERVISOR Fco Flores RN Active documented as of this encounter Mental Status * Because of a physical, mental, or emotional condition, do you have serious difficulty concentrating, remembering, or making decisions? Answer Entry Date Author Status No 07/03/2021 1:00 AM ASPHALT PAVING SUPERVISOR Fco Flores RN Active documented in this encounter Plan of Treatment Upcoming Encounters Date Type Department Care Team (Late st Contact Info) Description 03/04/2025 10:30 AM CDT Appointment [facility] [place] [address] Shanon Sharma MD [address] [place] [address] 03/04/2025 11:00 AM CDT Appointment [facility] [place] [address] Shanon Sharma MD [address] [place] [address] 03/13/2025 9:20 AM CDT Office Visit [facility] Medical Group Multispecialty Care - [place] [address] [place] [phone] Homero Camarog MD [address] [facility] [place] [address] documented as of this encounter Goals Goal Patient Goal Type Associated Problems Recent Progress Patient-Stated? Author Health - patient able to perform ADLs independently General No Lupis Noel, RN documented as of this encounter Visit Diagnoses Not on filedocumented in this encounter Additional Health Concerns Assessment Noted Time PHQ-9 Depression Total Score: 0 06/26/20 21 1:17 PM ASPHALT PAVING SUPERVISOR documented as of this encounter Care Teams General Labor Relationship Specialty Start Date End Date Bhaskar Kahn MD [address] [facility] [address] [place] [address] PCP - General FAMILY PRACTICE 12/10/20 05/27/24 [place] [address] [place] [address] PCP - General FAMILY PRACTICE 05/28/24 Segun Grimaldo MD [facility] [address] [place] [address] [place] Bomb Loader CARDIOVASCULAR DISEASE 03/21/19 documented as of this encounter
--- OUTSIDE RECORDS SUMMARY | 2025-02-15 00:45 | XMS_ITS | Patient Health Record ---
Author Organization [facility] Address [address] [place], [place] [id number] Care Team Providers Care Crab Fisherman Name Role Phone BRYANT Mendoza Unavailable Reason For Referral No Information Medications Medication SIG (Take, Route, Frequency, Duration) Notes Start Date End Date Status clopidogrel 300 MG Oral Tablet ORAL clopidogrel 300 MG Oral TabletOriginal Medicationclopidogrel 300 MG Oral Tablet *Reorder from [employer] for eRx and Interaction Alerts* 7 Active acetaminophen 325 MG / oxycodone hydrochloride 10 MG Oral Tablet [Percocet] ORAL acetaminophen 325 MG / oxycodone hydrochloride 10 MG Oral Tablet [Percocet]Original Medicationacetaminophen 325 MG / oxycodone hydrochloride 10 MG Oral Tablet [Percocet] *Reorder from [employer] for eRx and Inter 7 Active Plan Of Treatment No Information Insurance Providers Payer Name Payer Address Payer Phone Subscriber Number Group Number Insured Name Patient Relationship to Insured Coverage Start Date Coverage End Date Raiza [place] (Regions 1-6) [address] [place], [place] [id number] DESTINY CURTIS Spouse - patient is the spouse of the insured
--- OUTSIDE RECORDS SUMMARY | 2025-02-15 00:45 | XMS_ITS | Encounter Summary ---
Author Organization [facility] Address Replaced by [facility] [place] [address] Care Team Providers Care Branch Director Name Role Phone Segun Grimaldo MD Unavailable Bhaskar Kahn MD Primary Care Provider Un available Magalie Hung MD Primary Care Provider [phone] Encounter Details Date Type Department Care Team (Late st Contact Info) Description 06/11/[address] [facility] [place] [id number] Frandy Zuniga MD 3 [facility] 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 removed three pieces. 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 HLD (hyperlipidemia) Migraines Obesity PONV (postoperative nausea and vomiting) depends on the anesthesia Stroke (HHS/HCC) ([facility]/HCC) 2012 dissected left carotid artery, now takes [...] Info) Description 03/04/2025 10:30 AM CDT Appointment [facility] [place] [address] Shanon Sharma MD [facility] [place] [address] 03/04/2025 11:00 AM CDT Appointment [facility] [address] Shanon Sharma MD [address] [place] [address] 03/13/2025 9:20 AM CDT Office Visit [facility] [address] [facility] [place] [phone] Homero Camargo MD [address] [facility] [place] [address] documented as of this encounter Goals Goal Patient Goal Type Associated Problems Recent Progress Patient-Stated? Author Health - patient able to perform ADLs independently General No Lupis Noel, clinical education specialist - family caregiver with be involved in care transitions and discharge planning General No Codie Myers, MASKING MACHINE FEEDER documented as of this encounter Visit Diagnoses Not on filedocumented in this encounter Additional Health Concerns Assessment Noted Time PHQ-9 Depression Total Score: 1 11/19/19 23 11:28 AM CDT documented as of this encounter Care Teams Branch Director Relationship Specialty Start Date End Date Bhaskar Kahn MD [address] [address] PCP - General FAMILY PRACTICE 12/10/20 05/27/24 Magalie Hung MD [address] [place] [address] PCP - General FAMILY PRACTICE 05/28/24 Segun Grimaldo MD 3 [facility] [address] [place] [phone] [place] Rail Car Painter/Sandblaster CARDIOVASCULAR DISEASE 03/21/19 documented as of this encounter
--- NOTE | 2025-02-15 07:19 | WPDHPUPDATE1 ---
History and Physical Update Update Date/Time: 02/15/25 07:19 History and Physical has been reviewed, including an updated exam of the patient. There are NO changes in the patient's condition. Risks, benefits, and alternatives have been discussed and questions answered. Patient agrees to proceed with procedure.
[2025-02-15] MEDS: LACTATED RINGERS 1,000 ML 30 ML IV CONT (10:00)
--- NOTE | 2025-02-15 10:05 | WPDANESEPPF ---
Anes - Initial Pre Proc Eval Procedure: Operation Date: 02/15/25 11:15 Proposed Procedures p Urethral Sling - Woody Beasley MD Date/Time: 02/15/25 10:05 Surgeon: Woody Beasley MD Pre Op Diagnosis: stress incont Patient Data Age: 54 Gender: F Height: 1.63 m Weight: 108 kg Allergies Allergy/AdvReac Type Severity Reaction Status Date / Time No Known Allergies Allergy Verified 02/06/25 18:08 Home Medications ?Medication ?Instructions ?Recorded ?Confirmed ?Type aspirin 81 mg capsule 81 mg PO DAILY 02/06/25 02/06/25 History cariprazine 3 mg capsule (Vraylar) 3 mg PO Q24H 02/06/25 02/06/25 History divalproex 250 mg tablet,extended 250 mg PO DAILY 02/06/25 02/06/25 History release 24 hr hydrochlorothiazide 25 mg tablet 25 mg PO DAILY 02/06/25 02/06/25 History losartan 50 mg tablet 50 mg PO DAILY 02/06/25 02/06/25 History omeprazole 10 mg capsule,delayed 10 mg PO DAILY 02/06/25 02/06/25 History release pravastatin 40 mg tablet 40 mg PO DAILY 02/06/25 02/06/25 History venlafaxine 150 mg 150 mg PO DAILY 02/06/25 02/06/25 History capsule,extended release 24 hr Patient hx anesthesia problems: none Family hx anesthesia problems: none Results Review: All pre-operative results and documents have been reviewed as part of the pre-operative evaluation. [facility] Past Medical History Medical History (Updated 02/15/25 @ 10:06 by Avinash Malave MD) Cancer HTN (hypertension) Morbid obesity History of CVA (cerebrovascular accident) Social History Social History Smokeless tobacco user: chewing tobacco Smoking end date: 08/08/90 Additional smoking assessment comments: chewing tobacco for 1 year Alcohol intake: never Living arrangements: with family Additional living arrangements comments: Spiritual care concerns: No Anes - Eval Final PreProcedure Day of Procedure 02/15/25 10:05 Patient weight: morbidly obese Heart: regular rate and rhythm Lungs: clear to auscultation Airway: Mallampati scale class III and special considerations poor opening Neurological: alert and oriented Last oral intake: >/= 8 hours ASA classification: IV Emergent: no Anesthetic plan: proceed Anesthesia type and monitoring: general LMA and standard monitoring Results Review: All pre-operative results and documents have been reviewed as part of the pre-operative evaluation. Informed Consent: The patient's anesthetic plan and its attendant risks and benefits were discussed with the patient/family/POA. Questions were solicited and answers provided to the satisfaction of the patient/family/POA.
[2025-02-15] MEDS: ceFAZolin 2 GM in SODIUM CHLORIDE 0.9% IV 50 ML 100 ML IVPB (12:04)
[2025-02-15] MEDS: BUPIVACAINE/EPINEPHRINE 0.5% 30 ML VIAL 10 ML INFILTRATE (12:07)
--- NOTE | 2025-02-15 12:36 | W.PM.PROC2 ---
Procedure Note - Detailed Date of Procedure 02/15/25 Pre-op Diagnosis stress incont Post-op Diagnosis Same Procedure Performed mid urethral sling cystoscopy Surgeon Woody Beasley MD Anesthesia General Indications This is a female with confirm stress urinary incontinence. She desires surgical correction. She understands the risks of bleeding, infection, injury to the urinary tract, vaginal mesh extrusion, urinary tract mesh erosion, obstructive voiding requiring a secondary procedure, hip and leg pain, dyspareunia, inability to improve overactive bladder symptoms. She agrees to proceed. Description of Procedure She was correctly identified. Informed consent obtained. She was brought the operating room. She was given appropriate anesthesia. She was given appropriate perioperative antibiotics. A time-out performed. I marked out the site of the inner thigh incisions. I anesthetized the skin and made those incisions. I anesthetized the anterior vaginal wall over the mid urethra. I made a 1 cm incision. I dissected out laterally taking great care not to injure the refilled vaginal wall. I passed the helical trocars. First on the left. Then on the right. I did this from the thigh incision towards the vaginal incision. The sling was connected to the trocars and brought out through the thigh incision. I tensioned the sling appropriately. I cut and the plastic sheaths. I then closed the incision with 2 0 Vicryl. On cystoscopy there is no tumors or surgical artifact. There was no surgical artifact in the urethra. I cut the excess sling material. Close incisions with glue. She was awakened and transferred to the PACU in stable condition. Implants Urethral sling Drains No Packing No Pathology None sent Complications No immediate complications Condition Stable Disposition PACU
[2025-02-15] MEDS: oxyCODONE HCL (*CRX) 5 MG TAB IR PO (13:55)
== END 2025-02-15 14:20 | disposition home or self-care (01) ==
PROVIDERS: Visit Provider Urology
PROC: (CPT 57288; principal; 2025-02-15 11:15)
DX: N39.3 Stress incontinence (female) (male) (principal); Z79.899 Other long term (current) drug therapy; Z87.891 Personal history of nicotine dependence; E66.01 Morbid (severe) obesity due to excess calories; Z68.41 Body mass index [BMI] 40.0-44.9, adult
CPT/HCPCS: 57288; 82948; J0690; A9270; C1771; J2003; J2250; J2405; J2704; J3010; J7120